=== PATIENT | male | born 1950 | race Caucasian/White ===

== ENCOUNTER 2016-04-20 16:32 | Emergency (ER) | payer MEDICARE, OTHER ==
[~2016-04-20] VITALS: Ht 182.9 cm; Wt 95.5 kg
[~2016-04-20 16:32] MED LIST: ALBUTEROL0.83 MG/ML IH; ANTI-GAS 8080 MG PO; ASPIRIN E.C. 8181 MG PO; ATROVENT I0.2 MG/1 M IH; AZULFIDINE ENT500 MG PO; AZULFIDINE500 MG PO; AZULFIDINE500 MG/TAB PO; BENADRYL25 M2 PO; BENADRYL50 MG PO; CALCITRIOL PO; CALCIUM 500 + D1 TA1 PO; CARAFATE 1GM1 G PO; CARVEDILOL25 MG PO; CEPACOL SORE TH1 LO8 MM; CEPHALEXIN500 M1 PO; CLEOCIN HC150 MG/CAP PO; CLEOCIN HCL300 MG PO; CLONAZEPAM1 MG PO; CLOPIDOGREL75 MG PO; COREG 25MG25 MG/TAB PO; CORTEF 10MG TAB10 MG PO; CYANOCOBAL1000 MCG/1; CYANOJECT1000 MCG/M IM; DILAUDID 4MG TAB4 MG PO; DILAUDID PAIN PUMP; DOCUSATE100 MG PO; EPOGEN 2,002 MU/VIA1; EPOGEN MU; EPOGEN4000 U/ML IJ; FOLIC ACID1 MG PO; FUROSEMIDE40 MG PO; HYDROCORTISONE10 MG PO; HYDROCORTISONE5 M1 PO; IMDUR 60MG60 MG/TAB PO; IMDUR30 MG PO; IPRATROPIUM BROM3 M1 IH; KEPPRA 500MG500 MG PO; KLONOPIN 1MG1 MG PO; LASIX 20MG TABL20 MG PO; LEVAQUIN 2250 MG/TAB PO; MAG-OX 400400 MG/TAB PO; MAGNESIUM OXID420 MG PO; METHOCARBAMOL500 MG PO; MIRALAX PA17 GM/Dose PO; NATURE'S BLEN5000 IU PO; NITROSTAT0.4 MG/TAB SL; OMEPRAZOLE20 MG PO; OXYCODONE5 M1 PO; PERCOCET 325 MG1 TA2 PO; PHOS LO PO; PHOSLO667 MG PO; PLAVIX 75MG TAB75 MG PO; PREDNISONE10 MG PO; PREDNISONE20 MG PO; PRINIVIL5 MG PO; REFRESH PLUS 00.4 M1 OP; RENVELA800 MG PO; RESTORIL30 MG PO; SEE INSTRUCTIONS IT; SIMVASTATIN40 MG PO; SULFASALAZINE500 M1 PO; TUMS500 MG PO; UNABLE; VIA; VITAMIN D1000 IU PO; ZANTAC 150MG T150 MG PO; ZOCOR 40MG40 MG PO; ZOFRAN ODT4 MG PO; ZYLOPRIM 100MG100 MG PO; ZYVOX 600MG600 MG PO
[2016-04-20 16:39] VITALS: BP 129/75; TEMP 98.2
[2016-04-20 20:09] VITALS: PULSE 90
== END 2016-04-20 20:09 | disposition home or self-care (01) ==
LOC: COL.ER 16:32
DX: T87.89 Other complications of amputation stump (principal); G89.29 Other chronic pain; M79.651 Pain in right thigh; Z89.611 Acquired absence of right leg above knee; E11.22 Type 2 diabetes mellitus with diabetic chronic kidney disease; I12.9 Hypertensive chronic kidney disease with stage 1 through stage 4 chronic kidney disease, or unspecified chronic kidney disease; N18.9 Chronic kidney disease, unspecified; G54.6 Phantom limb syndrome with pain

== ENCOUNTER 2016-04-26 15:19 | Inpatient (IN) | payer MEDICARE, OTHER ==
[2016-04-26] VITALS (330 sets, daily range): BP systolic 138–142; BP diastolic 78–93; PULSE 73–84; TEMP 97.1–97.4; O2SAT 65–100
[~2016-04-26] VITALS: Ht 182.9 cm; Wt 90.5 kg
[2016-04-26 16:10] LABS: BASO % 0.1 % (0.0-2.0); EOS # 0.1 (0.0-0.7); EOS % 0.7 % (0-4.0); GRAN # 4.9 (1.4-6.5); GRAN % 69.6 % (42.2-75.2); HEMOGLOBIN 10.8 g/dl (13.5-18.0); LYMPH # 1.3 (1.2-3.4); LYMPH % 18.5 % (20.0-51.0); MEAN CELL VOLUME 100 fl (80.0-100.0); MEAN CORPUSCULAR HEMOGLOBIN 32 pg (27.0-31.0); MEAN CORPUSCULAR HGB CONC 32 g/dl (33.0-37.0); MEAN PLATELET VOLUME 11.7 fl (7.4-10.4); MONO # 0.8 (0.1-0.6); PLATELET COUNT 109 K/mm3 (130-400); RED BLOOD COUNT 3.41 M/mm3 (4.20-5.60); REDCELL DISTRIBUTION WIDTH-CV 15.9 % (11.5-14.5)
[2016-04-26 16:14] LABS: INR 1.1 (0.8-3.0); PROTHROMBIN TIME 12.6 SECONDS (9.7-12.8)
[2016-04-26 16:17] LABS: ADJUSTED CALCIUM 8.3 mg/dL (8.4-10.2); ALBUMIN 4.4 gm/dL (3.5-5.0); BILIRUBIN,TOTAL 0.9 mg/dL (0.0-1.0); C-REACTIVE PROTEIN 1.2 mg/dL (0.0-0.9); CALCIUM 8.6 mg/dL (8.4-10.2); POTASSIUM 4.8 mmol/L (3.4-5.0); TOTAL PROTEIN 7.4 gm/dL (6.4-8.2)
[2016-04-26 16:22] LABS: CREATININE, serum 9.08 mg/dL (0.66-1.25)
[2016-04-26 16:25] LABS: TROPONIN-I 0.021 ng/mL (0.000-0.034)
[2016-04-26 16:34] LABS: MAGNESIUM 1.7 mg/dL (1.6-2.3); PHOSPHOROUS 8.7 mg/dL (2.5-4.5)
[2016-04-26 16:35] LABS: ARTERIAL BLD GAS O2 SATURATION 95.6 % (92-100); ARTERIAL BLD GAS TCO2 CT 16.2; ARTERIAL BLOOD GAS BASE EXCESS -13.8 (-2-2); ARTERIAL BLOOD GAS HCO3 14.8 meq/L (22-26); OXYHEMOGLOBIN 94.6 %
[2016-04-26 16:36] LABS: ALLEN TEST NO; ARTERIAL BLOOD GAS PHT 7.13 C (7.35-7.45); ARTERIAL BLOOD GAS pH 7.13 (7.35-7.45); ATS? YES; PARTIAL THROMBOPLASTIN TIME 28.2 SECONDS (26.0-37.0)
[2016-04-26 17:34] LABS: PH 5 (5-8); SQUAMOUS EPITHELIAL 0-2 /hpf; URINE APPEARANCE Hazy; URINE BACTERIA Rare /hpf; URINE BILIRUBIN Negative (NEGATIVE); URINE BLOOD 3+ (NEGATIVE); URINE COLOR Yellow; URINE GLUCOSE Negative (NEGATIVE); URINE KETONE Negative (NEGATIVE); URINE UROBILINOGEN Negative (NEGATIVE)
[2016-04-27] VITALS (672 sets, daily range): BP systolic 130–143; BP diastolic 64–86; PULSE 76–88; TEMP 97.1–98.7; O2SAT 41–100
[2016-04-27 05:50] LABS: ALBUMIN 3.9 gm/dL (3.5-5.0); CALCIUM 7.8 mg/dL (8.4-10.2); PHOSPHOROUS 6.8 mg/dL (2.5-4.5); POTASSIUM 3.7 mmol/L (3.4-5.0)
[2016-04-27 05:55] LABS: CREATININE, serum 7.77 mg/dL (0.66-1.25)
[2016-04-27 14:10] LABS: MAGNESIUM 1.5 mg/dL (1.6-2.3); POTASSIUM 3.5 mmol/L (3.4-5.0)
[2016-04-27 14:23] LABS: TROPONIN-I 0.03 ng/mL (0.000-0.034)
[2016-04-28 00:13] VITALS: BP 127/59; PULSE 79; TEMP 98.2
[2016-04-28 04:04] VITALS: BP 131/63; PULSE 71; TEMP 97.6
[2016-04-28 07:17] LABS: CALCIUM 7.9 mg/dL (8.4-10.2); PHOSPHOROUS 6.4 mg/dL (2.5-4.5); POTASSIUM 3.6 mmol/L (3.4-5.0)
[2016-04-28 07:37] LABS: CREATININE, serum 7.08 mg/dL (0.66-1.25)
[2016-04-28 08:32] VITALS: BP 147/70; PULSE 77; TEMP 97.8
[2016-04-28 12:30] VITALS: BP 126/59; PULSE 76; TEMP 98.4
[2016-04-28 16:10] VITALS: BP 147/73; PULSE 72; TEMP 97.6
[2016-04-28 20:31] VITALS: BP 147/71; PULSE 80; TEMP 98.7
[2016-04-29] VITALS (7 sets, daily range): BP systolic 121–159; BP diastolic 64–82; PULSE 75–86; TEMP 96.6–98.9
[2016-04-29 07:46] LABS: ALBUMIN 4.1 gm/dL (3.5-5.0); CALCIUM 8.8 mg/dL (8.4-10.2); PHOSPHOROUS 6.1 mg/dL (2.5-4.5); POTASSIUM 3.7 mmol/L (3.4-5.0)
[2016-04-29 08:02] LABS: CREATININE, serum 6.54 mg/dL (0.66-1.25)
[2016-04-29] MEDS ORDERED: XALATAN EYE DROPS OU (13:57)
[2016-04-30 00:50] VITALS: BP 157/72; PULSE 64; TEMP 97.3
[2016-04-30 05:10] VITALS: BP 139/66; PULSE 70; TEMP 97.4
[2016-04-30 09:14] VITALS: BP 135/67; PULSE 71; TEMP 97.4
[2016-04-30 11:26] LABS: BASO % 0.2 % (0.0-2.0); EOS # 0.2 (0.0-0.7); EOS % 2.7 % (0-4.0); GRAN # 4.4 (1.4-6.5); GRAN % 69.4 % (42.2-75.2); LYMPH # 1.1 (1.2-3.4); MEAN CELL VOLUME 103 fl (80.0-100.0); MEAN CORPUSCULAR HGB CONC 31 g/dl (33.0-37.0); MONO # 0.7 (0.1-0.6); MONO % 10.2 % (1.7-9.3); PLATELET COUNT 134 K/mm3 (130-400); RED BLOOD COUNT 3.06 M/mm3 (4.20-5.60); REDCELL DISTRIBUTION WIDTH-CV 16.1 % (11.5-14.5); WHITE BLOOD COUNT 6.4 K/mm3 (4.8-10.8)
[2016-04-30 11:31] LABS: HEMATOCRIT 31.4 % (42.0-52.0); HEMOGLOBIN 9.6 g/dl (13.5-18.0); MEAN CORPUSCULAR HEMOGLOBIN 31 pg (27.0-31.0)
[2016-04-30 12:26] LABS: POTASSIUM 4.1 mmol/L (3.4-5.0)
[2016-04-30 12:34] LABS: CREATININE, serum 6.52 mg/dL (0.66-1.25)
[2016-04-30 13:10] VITALS: BP 139/70; PULSE 79; TEMP 97.4
[2016-04-30 15:28] VITALS: BP 131/64; PULSE 86; TEMP 98
== END 2016-04-30 15:55 | disposition short-term general hospital (02) | DRG 683 ==
LOC: COL.ER 15:19 → ICU 17:34 → MEDICAL 17:34
PROVIDERS: Family Medicine; Internal Medicine; Internal Medicine Nephrology
DX: N17.9 Acute kidney failure, unspecified (principal); K50.90 Crohn's disease, unspecified, without complications; I12.0 Hypertensive chronic kidney disease with stage 5 chronic kidney disease or end stage renal disease; E87.2 Acidosis; N18.6 End stage renal disease; E83.51 Hypocalcemia; M45.9 Ankylosing spondylitis of unspecified sites in spine; Z89.511 Acquired absence of right leg below knee; J44.9 Chronic obstructive pulmonary disease, unspecified; E83.39 Other disorders of phosphorus metabolism; G89.29 Other chronic pain; Z86.711 Personal history of pulmonary embolism
CPT/HCPCS: J1644; J1650; J2405; J7030

== ENCOUNTER → 2016-05-27 | Outpatient (REF) ==
[~2016-05-27] MED LIST changes: +XALATAN EYE DROPS OU
[2016-05-27 10:42] LABS: BASO # 0.1 (0.0-0.2); BASO % 0.6 % (0.0-2.0); EOS # 0.2 (0.0-0.7); EOS % 1.7 % (0-4.0); GRAN # 8.3 (1.4-6.5); GRAN % 79.1 % (42.2-75.2); LYMPH # 1.1 (1.2-3.4); LYMPH % 10.4 % (20.0-51.0); MEAN CELL VOLUME 103 fl (80.0-100.0); MEAN CORPUSCULAR HGB CONC 31 g/dl (33.0-37.0); MONO # 0.8 (0.1-0.6); MONO % 7.4 % (1.7-9.3); PLATELET COUNT 152 K/mm3 (130-400); RED BLOOD COUNT 3.06 M/mm3 (4.20-5.60); REDCELL DISTRIBUTION WIDTH-CV 16.1 % (11.5-14.5); WHITE BLOOD COUNT 10.5 K/mm3 (4.8-10.8)
[2016-05-27 11:00] LABS: HEMATOCRIT 31.5 % (42.0-52.0); HEMOGLOBIN 9.7 g/dl (13.5-18.0); MEAN CORPUSCULAR HEMOGLOBIN 32 pg (27.0-31.0)
== END ==
LOC: ZCOL.LAB 10:31
PROVIDERS: Internal Medicine
DX: N18.6 End stage renal disease (principal); D63.1 Anemia in chronic kidney disease; A08.8 Other specified intestinal infections

== ENCOUNTER 2016-10-20 07:48 | Emergency (ER) | payer MEDICARE, OTHER ==
[~2016-10-20] VITALS: Ht 182.9 cm; Wt 90.9 kg
[2016-10-20 07:51] VITALS: TEMP 97.7
[2016-10-20 09:12] VITALS: BP 100/65; PULSE 89
== END 2016-10-20 09:45 | disposition home or self-care (01) ==
LOC: COL.ER 07:48
DX: T87.89 Other complications of amputation stump (principal); I12.0 Hypertensive chronic kidney disease with stage 5 chronic kidney disease or end stage renal disease; N18.6 End stage renal disease; E78.5 Hyperlipidemia, unspecified; G89.29 Other chronic pain; I82.409 Acute embolism and thrombosis of unspecified deep veins of unspecified lower extremity; Z99.2 Dependence on renal dialysis; Z89.611 Acquired absence of right leg above knee
CPT/HCPCS: J1100

== ENCOUNTER → 2016-10-27 | Outpatient (CLI) | payer MEDICARE, OTHER | LOC: COL.RAD 09:52 | DX: Z11.1 Encounter for screening for respiratory tuberculosis (principal) ==

== ENCOUNTER 2016-12-22 07:37 | Emergency (ER) | payer MEDICARE, OTHER ==
[~2016-12-22] VITALS: Ht 182.9 cm; Wt 85.9 kg
[2016-12-22 07:40] VITALS: TEMP 97.6
[2016-12-22 09:39] VITALS: BP 104/59; PULSE 74
== END 2016-12-22 09:35 | disposition home or self-care (01) ==
LOC: COL.ER 07:37
DX: G62.9 Polyneuropathy, unspecified (principal); M79.604 Pain in right leg; I10 Essential (primary) hypertension; N19 Unspecified kidney failure; Z99.2 Dependence on renal dialysis; Z79.82 Long term (current) use of aspirin; Z79.02 Long term (current) use of antithrombotics/antiplatelets; Z89.611 Acquired absence of right leg above knee; Z98.890 Other specified postprocedural states
CPT/HCPCS: J1100

== ENCOUNTER 2017-03-26 10:25 | Day surgery (SDC) | payer MEDICARE, OTHER ==
[~2017-03-26] VITALS: Ht 182.9 cm; Wt 89.1 kg
[2017-03-26 11:34] VITALS: BP 94/73; PULSE 95; TEMP 97.2
[2017-03-26] MEDS ORDERED: CYANOCOBAL1000 MCG/M IM (11:56)
[2017-03-26] MEDS ORDERED: FERROUS SU325 MG/TAB PO (11:57)
[2017-03-26] MEDS ORDERED: VITAMIN D31000 I1 PO (11:58)
[2017-03-26] MEDS ORDERED: ELOCON0.1% TP (11:59)
[2017-03-26] MEDS ORDERED: [UNRECOGNIZED DRUG - OTHER] PO (12:06)
[2017-03-26 14:22] VITALS: BP 90/50; PULSE 73; TEMP 97.3
[2017-03-26 14:32] VITALS: BP 79/37; PULSE 72
[2017-03-26 14:45] VITALS: BP 82/50; PULSE 66
[2017-03-26] MEDS ORDERED: PERCOCET 325 MG1 TA2 PO (15:03)
[2017-03-26] MEDS ORDERED: COLACE 100100 MG/CAP PO (15:04)
[2017-03-26 15:07] VITALS: BP 93/58; PULSE 68
[2017-03-26 15:42] VITALS: BP 95/67; PULSE 66
== END 2017-03-26 16:10 | disposition home or self-care (01) ==
LOC: SDCO 10:25
DX: K64.5 Perianal venous thrombosis (principal); G47.33 Obstructive sleep apnea (adult) (pediatric); E24.9 Cushing's syndrome, unspecified; E78.5 Hyperlipidemia, unspecified; I13.2 Hypertensive heart and chronic kidney disease with heart failure and with stage 5 chronic kidney disease, or end stage renal disease; N18.5 Chronic kidney disease, stage 5; I50.9 Heart failure, unspecified; I25.119 Atherosclerotic heart disease of native coronary artery with unspecified angina pectoris; I42.9 Cardiomyopathy, unspecified; I25.2 Old myocardial infarction; D64.9 Anemia, unspecified; D69.6 Thrombocytopenia, unspecified; M45.9 Ankylosing spondylitis of unspecified sites in spine; K50.90 Crohn's disease, unspecified, without complications; K92.1 Melena; K21.9 Gastro-esophageal reflux disease without esophagitis; F32.9 Major depressive disorder, single episode, unspecified; Z95.5 Presence of coronary angioplasty implant and graft; Z86.73 Personal history of transient ischemic attack (TIA), and cerebral infarction without residual deficits; Z86.718 Personal history of other venous thrombosis and embolism; Z82.49 Family history of ischemic heart disease and other diseases of the circulatory system; Z82.3 Family history of stroke
CPT/HCPCS: J2250; J2704; J3010; J7030

== ENCOUNTER 2017-04-07 09:45 | Emergency (ER) | payer MEDICARE, OTHER ==
[~2017-04-07] VITALS: Ht 182.9 cm; Wt 88.6 kg
[~2017-04-07 09:45] MED LIST changes: +COLACE 100100 MG/CAP PO; +CYANOCOBAL1000 MCG/M IM; +ELOCON0.1% TP; +FERROUS SU325 MG/TAB PO; +VITAMIN D31000 I1 PO; +[UNRECOGNIZED DRUG - OTHER] PO
[2017-04-07 09:50] VITALS: TEMP 98.1
[2017-04-07 11:23] LABS: BASO % 0.4 % (0.0-2.0); EOS # 0.1 (0.0-0.7); EOS % 1.4 % (0-4.0); GRAN # 5.2 (1.4-6.5); LYMPH # 1.2 (1.2-3.4); LYMPH % 16.6 % (20.0-51.0); MEAN CELL VOLUME 110 fl (80.0-100.0); MEAN CORPUSCULAR HGB CONC 32 g/dl (33.0-37.0); MEAN PLATELET VOLUME 11.4 fl (7.4-10.4); MONO # 0.5 (0.1-0.6); MONO % 7.2 % (1.7-9.3); PLATELET COUNT 127 K/mm3 (130-400)
[2017-04-07 11:26] LABS: HEMOGLOBIN 10.3 g/dl (13.5-18.0); MEAN CORPUSCULAR HEMOGLOBIN 36 pg (27.0-31.0)
[2017-04-07 11:33] LABS: ADJUSTED CALCIUM 9.1 mg/dL (8.4-10.2); BILIRUBIN,TOTAL 0.6 mg/dL (0.0-1.0); CALCIUM 9.1 mg/dL (8.4-10.2); POTASSIUM 3.3 mmol/L (3.4-5.0); TOTAL PROTEIN 6.9 gm/dL (6.4-8.2)
[2017-04-07 11:35] LABS: CREATININE, serum 5.9 mg/dL (0.66-1.25)
[2017-04-07 11:45] LABS: TROPONIN-I 0.024 ng/mL (0.000-0.034)
[2017-04-07 15:37] LABS: INR 1.2 (0.8-3.0); PROTHROMBIN TIME 13.7 SECONDS (9.7-12.8)
[2017-04-07 15:40] LABS: PARTIAL THROMBOPLASTIN TIME 32.7 SECONDS (26.0-37.0)
[2017-04-07 16:13] VITALS: BP 92/66; PULSE 83
== END 2017-04-07 16:13 | disposition home or self-care (01) ==
LOC: COL.ER 09:45
PROVIDERS: Emergency Medicine; Nurse Practitioner Primary Care
DX: G89.29 Other chronic pain (principal); M54.5 Low back pain; I12.0 Hypertensive chronic kidney disease with stage 5 chronic kidney disease or end stage renal disease; N18.5 Chronic kidney disease, stage 5; I25.2 Old myocardial infarction; E78.5 Hyperlipidemia, unspecified; G40.909 Epilepsy, unspecified, not intractable, without status epilepticus; J44.9 Chronic obstructive pulmonary disease, unspecified; K21.9 Gastro-esophageal reflux disease without esophagitis; K50.90 Crohn's disease, unspecified, without complications; Z86.69 Personal history of other diseases of the nervous system and sense organs; Z86.711 Personal history of pulmonary embolism; Z86.72 Personal history of thrombophlebitis; Z87.39 Personal history of other diseases of the musculoskeletal system and connective tissue; Z87.442 Personal history of urinary calculi; Z79.82 Long term (current) use of aspirin; Z89.611 Acquired absence of right leg above knee; Z90.2 Acquired absence of lung [part of]; Z98.890 Other specified postprocedural states
CPT/HCPCS: J7030

== ENCOUNTER → 2017-04-08 | Outpatient (CLI) | payer MEDICARE, OTHER ==
[~2017-04-08] MED LIST changes: +DILAUDID 2MG TAB2 MG PO
== END ==
LOC: COL.RAD 08:21
DX: R06.02 Shortness of breath (principal); R07.9 Chest pain, unspecified; Z90.2 Acquired absence of lung [part of]
CPT/HCPCS: A9539; A9540

== ENCOUNTER 2017-04-10 09:58 | Emergency (ER) | payer MEDICARE, OTHER ==
[~2017-04-10] VITALS: Ht 182.9 cm; Wt 88.6 kg
[~2017-04-10 09:58] MED LIST changes: -DILAUDID 2MG TAB2 MG PO
[2017-04-10 10:01] VITALS: PULSE 82; TEMP 97.7
[2017-04-10 10:53] LABS: BASO % 0.5 % (0.0-2.0); EOS # 0.2 (0.0-0.7); GRAN # 3.8 (1.4-6.5); GRAN % 62.1 % (42.2-75.2); LYMPH # 1.5 (1.2-3.4); LYMPH % 24.2 % (20.0-51.0); MEAN CELL VOLUME 110 fl (80.0-100.0); MEAN CORPUSCULAR HGB CONC 32 g/dl (33.0-37.0); MEAN PLATELET VOLUME 11.3 fl (7.4-10.4); MONO # 0.6 (0.1-0.6); MONO % 9.9 % (1.7-9.3); PLATELET COUNT 124 K/mm3 (130-400); RED BLOOD COUNT 3.11 M/mm3 (4.20-5.60); WHITE BLOOD COUNT 6.1 K/mm3 (4.8-10.8)
[2017-04-10 10:55] LABS: HEMATOCRIT 34.1 % (42.0-52.0); MEAN CORPUSCULAR HEMOGLOBIN 35 pg (27.0-31.0)
[2017-04-10 11:21] LABS: ADJUSTED CALCIUM 8.7 mg/dL (8.4-10.2); ALBUMIN 4.4 gm/dL (3.5-5.0); BILIRUBIN,TOTAL 0.7 mg/dL (0.0-1.0); C-REACTIVE PROTEIN 5.1 mg/dL (0.0-0.9); POTASSIUM 3.6 mmol/L (3.4-5.0); TOTAL PROTEIN 7.4 gm/dL (6.4-8.2)
[2017-04-10 11:22] LABS: CREATININE, serum 5.99 mg/dL (0.66-1.25)
[2017-04-10 11:30] LABS: TROPONIN-I 0.031 ng/mL (0.000-0.034)
[2017-04-10] MEDS ORDERED: DILAUDID 2MG TAB2 MG PO (12:12)
[2017-04-10 12:35] VITALS: BP 94/54
== END 2017-04-10 12:37 | disposition home or self-care (01) ==
LOC: COL.ER 09:58
PROVIDERS: Emergency Medicine
DX: N18.6 End stage renal disease (principal); M54.5 Low back pain; G89.29 Other chronic pain; R06.02 Shortness of breath; Z99.2 Dependence on renal dialysis; Z79.82 Long term (current) use of aspirin; Z89.611 Acquired absence of right leg above knee
CPT/HCPCS: J1170; J2405

== ENCOUNTER → 2017-05-10 | Emergency (ER) | payer MEDICARE, OTHER ==
[~2017-05-10] VITALS: Wt 86.8 kg
[~2017-05-10] MED LIST changes: +ASPIRIN 81M81 MG/TA2 PO; +CYANOCOBAL1000 MCG/1 IJ; +DILAUDID 2MG TAB2 MG PO; +ISOSORBIDE MON120 MG PO; +SEVELAMER CARBONATE PO; +VALU-DRYL ALLER25 MG PO; +VITAMIN D 1001000 IU PO; +ZANTAC 150150 MG PO; +ZOCOR 20MG20 MG PO
[2017-05-10 09:55] VITALS: TEMP 97.9
[2017-05-10 12:37] VITALS: BP 108/78; PULSE 82
== END ==
LOC: COL.ER 09:42
DX: M79.2 Neuralgia and neuritis, unspecified (principal); I12.0 Hypertensive chronic kidney disease with stage 5 chronic kidney disease or end stage renal disease; N18.6 End stage renal disease; E78.5 Hyperlipidemia, unspecified; K21.9 Gastro-esophageal reflux disease without esophagitis; J44.9 Chronic obstructive pulmonary disease, unspecified; G47.33 Obstructive sleep apnea (adult) (pediatric); K50.90 Crohn's disease, unspecified, without complications; Z86.711 Personal history of pulmonary embolism; Z99.2 Dependence on renal dialysis; Z89.611 Acquired absence of right leg above knee; Z79.82 Long term (current) use of aspirin
CPT/HCPCS: J3301

== ENCOUNTER → 2017-07-27 | Outpatient (CLI) | payer MEDICARE, OTHER | LOC: COL.RAD 15:58 | DX: M54.2 Cervicalgia (principal); W05.0XXA Fall from non-moving wheelchair, initial encounter ==

== ENCOUNTER → 2017-07-29 | Outpatient (CLI) | payer MEDICARE, OTHER | LOC: COL.RAD 12:11 | DX: M54.2 Cervicalgia (principal); M43.6 Torticollis; W05.0XXA Fall from non-moving wheelchair, initial encounter; Z89.9 Acquired absence of limb, unspecified ==

== ENCOUNTER 2017-08-17 10:26 | Emergency (ER) | payer MEDICARE, OTHER ==
[~2017-08-17] VITALS: Ht 182.9 cm; Wt 87.7 kg
[2017-08-17 12:46] VITALS: BP 110/69; PULSE 80; TEMP 97
== END 2017-08-17 12:47 | disposition home or self-care (01) ==
LOC: COL.ER 10:26
DX: R51 Headache (principal); I25.10 Atherosclerotic heart disease of native coronary artery without angina pectoris; I42.9 Cardiomyopathy, unspecified; Z86.711 Personal history of pulmonary embolism; Z86.718 Personal history of other venous thrombosis and embolism; Z99.2 Dependence on renal dialysis; Z89.511 Acquired absence of right leg below knee; Z95.5 Presence of coronary angioplasty implant and graft

== ENCOUNTER 2018-01-09 07:54 | Emergency (ER) | payer MEDICARE, OTHER ==
[~2018-01-09] VITALS: Ht 182.9 cm; Wt 85.0 kg
[2018-01-09 07:58] VITALS: TEMP 98.7
[2018-01-09 08:41] VITALS: BP 94/57; PULSE 97
== END 2018-01-09 09:08 | disposition home or self-care (01) ==
LOC: COL.ER 07:54
DX: T87.89 Other complications of amputation stump (principal); G54.6 Phantom limb syndrome with pain; Z89.611 Acquired absence of right leg above knee; Z79.82 Long term (current) use of aspirin
CPT/HCPCS: J3301

== ENCOUNTER 2018-02-11 14:02 | Emergency (ER) | payer MEDICARE, OTHER ==
[~2018-02-11] VITALS: Ht 182.9 cm; Wt 85.5 kg
[2018-02-11 14:10] VITALS: TEMP 97.8
[2018-02-11 15:37] VITALS: BP 108/79; PULSE 97
== END 2018-02-11 15:40 | disposition home or self-care (01) ==
LOC: COL.ER 14:02
DX: T87.89 Other complications of amputation stump (principal); E11.9 Type 2 diabetes mellitus without complications; I10 Essential (primary) hypertension; Z79.82 Long term (current) use of aspirin

== ENCOUNTER → 2018-02-18 | Outpatient (CLI) | payer MEDICARE, OTHER | LOC: COL.RAD 13:21 | DX: I82.221 Chronic embolism and thrombosis of inferior vena cava (principal); N26.1 Atrophy of kidney (terminal); N20.0 Calculus of kidney; M62.50 Muscle wasting and atrophy, not elsewhere classified, unspecified site; Z99.2 Dependence on renal dialysis | CPT/HCPCS: Q9967 ==

== ENCOUNTER 2018-10-05 20:52 | Emergency (ER) | payer MEDICARE, OTHER ==
[~2018-10-05] VITALS: Ht 182.9 cm; Wt 85.5 kg
[2018-10-05 21:00] VITALS: BP 90/52; TEMP 97.4
[2018-10-05 22:43] VITALS: PULSE 93
== END 2018-10-05 22:43 | disposition home or self-care (01) ==
LOC: COL.ER 20:52
DX: S81.812A Laceration without foreign body, left lower leg, initial encounter (principal); N18.6 End stage renal disease; I25.10 Atherosclerotic heart disease of native coronary artery without angina pectoris; Z79.82 Long term (current) use of aspirin; W05.0XXA Fall from non-moving wheelchair, initial encounter; Y92.009 Unspecified place in unspecified non-institutional (private) residence as the place of occurrence of the external cause

== ENCOUNTER 2019-02-11 13:59 | Emergency (ER) | payer MEDICARE, OTHER ==
[~2019-02-11] VITALS: Ht 182.9 cm; Wt 85.0 kg
[~2019-02-11 13:59] MED LIST changes: +ARANESP0.15 MG/0. SQ; +CORDARONE200 MG/TAB PO; +LASIX 80MG TABL80 MG PO; +NATURAL IRON65 MG PO; +NEURONTIN100 MG/CAP PO
[2019-02-11 14:49] LABS: BASO % 0.2 % (0.0-2.0); EOS % 0.2 % (0-4.0); GRAN # 7.5 (1.4-6.5); GRAN % 80.7 % (42.2-75.2); LYMPH # 1.1 (1.2-3.4); LYMPH % 11.4 % (20.0-51.0); MEAN CELL VOLUME 112 fl (80.0-100.0); MEAN CORPUSCULAR HGB CONC 32 g/dl (33.0-37.0); MEAN PLATELET VOLUME 11.1 fl (7.4-10.4); MONO # 0.6 (0.1-0.6); MONO % 6.7 % (1.7-9.3); PLATELET COUNT 132 K/mm3 (130-400); RED BLOOD COUNT 2.58 M/mm3 (4.20-5.60); REDCELL DISTRIBUTION WIDTH-CV 15.7 % (11.5-14.5)
[2019-02-11 14:52] LABS: HEMATOCRIT 28.8 % (42.0-52.0); HEMOGLOBIN 9.1 g/dl (13.5-18.0); MEAN CORPUSCULAR HEMOGLOBIN 35 pg (27.0-31.0)
[2019-02-11 15:02] LABS: ALBUMIN 3.8 gm/dL (3.5-5.0); BILIRUBIN,TOTAL 0.3 mg/dL (0.0-1.0); CALCIUM 8.8 mg/dL (8.4-10.2); CREATININE, serum 2.62 (0.66-1.25); POTASSIUM 3.5 mmol/L (3.4-5.0); TOTAL PROTEIN 6.6 gm/dL (6.4-8.2)
[2019-02-11 15:11] LABS: PARTIAL THROMBOPLASTIN TIME 33.3 SECONDS (26.0-37.0)
[2019-02-11 15:13] LABS: TROPONIN-I 0.027 ng/mL (0.000-0.035)
[2019-02-11 16:35] VITALS: BP 107/66; PULSE 86; TEMP 98.8
== END 2019-02-11 16:40 | disposition home or self-care (01) ==
LOC: COL.ER 13:59
PROVIDERS: Family Medicine
DX: I12.0 Hypertensive chronic kidney disease with stage 5 chronic kidney disease or end stage renal disease (principal); E11.22 Type 2 diabetes mellitus with diabetic chronic kidney disease; N18.6 End stage renal disease; R07.89 Other chest pain; J44.1 Chronic obstructive pulmonary disease with (acute) exacerbation; G40.909 Epilepsy, unspecified, not intractable, without status epilepticus; Z99.2 Dependence on renal dialysis; Z79.82 Long term (current) use of aspirin; Z79.02 Long term (current) use of antithrombotics/antiplatelets
CPT/HCPCS: J2405; J3010

== ENCOUNTER 2019-02-15 18:57 | Inpatient (IN) | payer MEDICARE, OTHER ==
[~2019-02-15] VITALS: Ht 182.9 cm; Wt 83.4 kg
[2019-02-15 20:09] LABS: BASO % 0.3 % (0.0-2.0); EOS # 0.2 (0.0-0.7); EOS % 1.8 % (0-4.0); GRAN # 7.1 (1.4-6.5); MEAN CELL VOLUME 117 fl (80.0-100.0); MEAN CORPUSCULAR HGB CONC 31 g/dl (33.0-37.0); MEAN PLATELET VOLUME 11.3 fl (7.4-10.4); MONO # 1.1 (0.1-0.6); MONO % 11.2 % (1.7-9.3); PLATELET COUNT 158 K/mm3 (130-400); RED BLOOD COUNT 2.59 M/mm3 (4.20-5.60); REDCELL DISTRIBUTION WIDTH-CV 16.1 % (11.5-14.5)
[2019-02-15 20:15] LABS: HEMATOCRIT 30.2 % (42.0-52.0); HEMOGLOBIN 9.2 g/dl (13.5-18.0); MEAN CORPUSCULAR HEMOGLOBIN 36 pg (27.0-31.0)
[2019-02-15 20:20] LABS: ALBUMIN 3.7 gm/dL (3.5-5.0); BILIRUBIN,TOTAL 0.4 mg/dL (0.0-1.0); CALCIUM 8.7 mg/dL (8.4-10.2); MAGNESIUM 2.3 mg/dL (1.6-2.3); POTASSIUM 3.8 mmol/L (3.4-5.0); TOTAL PROTEIN 6.5 gm/dL (6.4-8.2)
[2019-02-15 20:21] LABS: CREATININE, serum 5.95 (0.66-1.25)
[2019-02-15 20:31] LABS: TROPONIN-I 0.03 ng/mL (0.000-0.035)
[2019-02-15] MEDS ORDERED: ARANESP0.06 MG/0. SQ (20:54)
[2019-02-15] MEDS ORDERED: CALPHRON667 MG PO (20:56)
[2019-02-15] MEDS ORDERED: PLAVIX 75MG TAB75 MG PO (20:57)
[2019-02-15] MEDS ORDERED: B-121000 MCG PO (20:58)
[2019-02-15] MEDS ORDERED: BENADRYL50 MG PO (20:59)
[2019-02-15] MEDS ORDERED: FERRO-TIME325 MG PO (21:00)
[2019-02-15] MEDS ORDERED: NEURONTIN100 MG/CAP PO (21:01)
[2019-02-15] MEDS ORDERED: LASIX 40MG TABL40 MG PO (21:01)
[2019-02-15] MEDS ORDERED: CORTEF 10MG TAB10 MG PO (21:02)
[2019-02-15] MEDS ORDERED: KEPPRA 500MG500 MG PO (21:04)
[2019-02-15] MEDS ORDERED: RENAGEL800 MG PO (21:05)
[2019-02-15] MEDS ORDERED: RESTORIL30 MG (21:06)
[2019-02-15] MEDS ORDERED: PERCOCET 325 MG1 TA2 PO (21:07)
[2019-02-15] MEDS ORDERED: DILAUDID 4MG TAB4 MG PO (21:08)
[2019-02-16] VITALS (10 sets, daily range): BP systolic 65–98; BP diastolic 23–53; PULSE 67–85; TEMP 97.3–98.5
--- NOTE | 2019-02-16 00:32 | NUR ---
Pt brought to Rm 315 per cart from ER. Alert. 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 Dozes off to sleep frequently while talking with pt. Accompanied with spouse and daughter. Assessment complete. VS monitored. C-pap set up for pt by RT. O2 on per NC at 3L. Med list gone over with spouse. INT intact in upper left arm. Has fistula in R lower arm that in non-working. Has hepatic port in R side for dialysis. Wound to L outer ankle redressed with Aquacel foam. Call light within reach. Bed alarm activated.
--- NOTE | 2019-02-16 01:34 | NUR ---
Notified Dr Guerrier of pt admission to 315. Instructed to hold meds till morning. Pt asleep at this time with c-pap on.
--- NOTE | 2019-02-16 14:00 | NUR ---
PATIENT GOING DOWN VIA BED TO CT PER . SEE ORDER FOR FLUID BOLUS FOR DIALYSIS. PATIENT TO GO TO DIALYSIS POST CT SCAN.
--- NOTE | 2019-02-16 16:10 | NUR ---
GINNA contacted the patient's , Ness (ph#[phone]), to discuss discharge plan. The patient was in dialysis. The patient lives in [place] with his . Ness reports that the patient needs assistance with ADLs and uses a wheelchair. She states that the patient has been weaker lately and needing more help with using the restroom. She states that he does not have any home health. The patient's PCP is Dr. Paul Hines and he also receives primary care from Dr. Ovalles at the [facility] in [place]. He receives his medications through the [facility] or [facility]. Ness reports no difficulties obtaining his meds. The patient does not have advanced directives in EMR, but his states that he does have them completed. She states that she is his DPOA-HC. She states that Dr. Hines's office should have a copy. GINNA attempted to contact Dr. Hines's office. GINNA left a voicemail. At this time, the patient's reports that she is unsure of discharge plan. GINNA to continue to follow to ensure a safe discharge.
--- NOTE | 2019-02-16 16:30 | NUR ---
PATIENT BACK IN ROOM FROM DIALYSIS. PATIENT RECEIVED TWO FLUID BOLUSES AND NO EXTRA FLUID WAS TAKEN DURING DIALYSIS DUE TO B/P IN THE 70'S SYST[place]. DIALYSIS NURSE REPORTS CURRENTLY B/P IN THE 80'S [place] WHICH IS TYPICAL FOR HIM WITH DIALYSIS. APPROVED TRANSFER TO FLOOR. PATIENT IS PALE, DROWSY BUT DOES AROUSE WITH VERBAL STIMULI. WILL MONITOR.
[2019-02-17] VITALS (13 sets, daily range): BP systolic 68–109; BP diastolic 33–56; PULSE 61–92; TEMP 97.2–98.1
--- NOTE | 2019-02-17 03:57 | NUR ---
Patient's cognitive state better tonight. Appears more tired. A&O x4. 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 Dr Guerrier called in to see how pt was doing. Update given. Orders received. VS will be monitored every 2 hours. Pt's BP has pretty much on the low side with pt being asymptomatic. C-Pap put on at HS per RT. Left uppper arm remains edematous. Call light within reach. Bed a;ar,
[2019-02-17 07:54] LABS: EOS % 0.2 % (0-4.0); GRAN # 4.5 (1.4-6.5); GRAN % 87.4 % (42.2-75.2); LYMPH # 0.4 (1.2-3.4); LYMPH % 7.9 % (20.0-51.0); MEAN CELL VOLUME 115 fl (80.0-100.0); MEAN CORPUSCULAR HGB CONC 31 g/dl (33.0-37.0); MEAN PLATELET VOLUME 11.5 fl (7.4-10.4); MONO # 0.2 (0.1-0.6); MONO % 3.5 % (1.7-9.3); PLATELET COUNT 125 K/mm3 (130-400); RED BLOOD COUNT 2.14 M/mm3 (4.20-5.60); REDCELL DISTRIBUTION WIDTH-CV 15.9 % (11.5-14.5)
[2019-02-17 08:00] LABS: HEMATOCRIT 24.5 % (42.0-52.0); HEMOGLOBIN 7.6 g/dl (13.5-18.0); MEAN CORPUSCULAR HEMOGLOBIN 36 pg (27.0-31.0)
[2019-02-17 08:04] LABS: CALCIUM 8.1 mg/dL (8.4-10.2); PHOSPHOROUS 3.1 mg/dL (2.5-4.5); POTASSIUM 4.4 mmol/L (3.4-5.0)
[2019-02-17 08:08] LABS: CREATININE, serum 5.4 (0.66-1.25)
--- NOTE | 2019-02-17 08:15 | NUR ---
Pt assessment complete. Alert and oriented x4. Pt laying comfortably in bed. Denies SOB, headache, dizziness, nausea. C/O of "phantom pain to right foot", rate 5/10. On 5L O2 via NC, SpO2 93%. Heel protector placed to left foot. Dressing to left lateral ankle and left lateral lower leg clean, dry, and intact. Repositioned pt up in bed with assistance of another RN. Pt able to verbalized needs.
--- NOTE | 2019-02-17 15:57 | NUR ---
GINNA met with the patient and the patient's to review discharge plan. The patient and his report that it is too soon to make a decision on discharge plan and would like to see how he does these next couple of days. The patient's reports that he is losing blood and they are unsure of where the bleed is coming from. PT/OT have been ordered. SW to continue to follow.
--- NOTE | 2019-02-17 19:13 | NUR ---
Pt laying comfortable in bed with dinner tray. at bedside. Denies pain or discomfort or SOB. Tolerated blood administration well, without symptoms or adverse reactions. Able to make needs known.
--- NOTE | 2019-02-17 21:15 | NUR ---
Resting in bed. Assessment complete. Lungs clear. Heart sounds normal. Bowels active x4. Pulses present. Left lower leg edema +3. Left arm edema +3. Right arm edema +2. Left foot boot on. Left perez abrasion present. Covered with dressing, CDI. Left lateral ankle wound covered with mepilex, CDI at this time. Patient has right ABD dialysis cath present. Dressing in place. Reports increased pain 5/10 and lightheadedness. Blood pressure 109/44. Offered pain medication. Refused at this time. Refused repositioning. Patient would like to see if lightheadedness eases with rest. Will monitor. Call light in reach.
[2019-02-18] VITALS (12 sets, daily range): BP systolic 94–125; BP diastolic 43–102; PULSE 57–91; TEMP 97.5–98.5
--- NOTE | 2019-02-18 01:59 | NUR ---
Lightheadedness resolved at this time. Pain decreased. Patient repositioned. Call light in reach.
--- NOTE | 2019-02-18 02:51 | NUR ---
Reports anxiety and requesting PRN klonopin. Blood pressure stable at 97/55 at this time. Provided to patient. Will closely monitor.
[2019-02-18 03:07] LABS: KAPPA FREE LIGHT CHAIN-SERUM 93.98 mg/L (()); KAPPA LAMBDA RATIO 1.08 ratio (()); LAMDA FREE LIGHT CHAIN SERUM 86.78 mg/L (())
--- NOTE | 2019-02-18 04:07 | NUR ---
Up to bedside commode at this time.
--- NOTE | 2019-02-18 06:02 | NUR ---
Patient received one dose of klonopin and oxycodone for anxiety and pain. x2 assist to bedside commode. Blood pressures remained low but stable. Asymptomatic. Denies needs this AM
--- NOTE | 2019-02-18 06:41 | NUR ---
Report given to ANDREW Stewart
[2019-02-18 06:42] LABS: MEAN CORPUSCULAR HGB CONC 31 g/dl (33.0-37.0); MEAN PLATELET VOLUME 11.1 fl (7.4-10.4); PLATELET COUNT 138 K/mm3 (130-400); RED BLOOD COUNT 3.02 M/mm3 (4.20-5.60); REDCELL DISTRIBUTION WIDTH-CV 20.3 % (11.5-14.5)
[2019-02-18 06:54] LABS: HEMATOCRIT 32.2 % (42.0-52.0); MEAN CELL VOLUME 107 fl (80.0-100.0); MEAN CORPUSCULAR HEMOGLOBIN 33 pg (27.0-31.0)
[2019-02-18 07:03] LABS: ALBUMIN 3.3 gm/dL (3.5-5.0); CALCIUM 8.5 mg/dL (8.4-10.2); CREATININE, serum 4.45 (0.66-1.25); POTASSIUM 4.3 mmol/L (3.4-5.0)
--- NOTE | 2019-02-18 08:56 | NUR ---
Pt resting in bed. No sign of distress. Call light within reach. Vital signs stable.
[2019-02-18 08:59] LABS: ANISOCYTOSIS 1+; BAND 2 % (0-10); HYPOCHROMIA 1+; LYMPHOCYTE 8 % (20.0-51.0); NEUTROPHILS 87 % (42.0-75.2); PLATELET ESTIMATE NORMAL (NORMAL)
--- NOTE | 2019-02-18 13:51 | NUR ---
Primary nurse was assisted with [id number] patient care by [employer] [facility] Rebekah Fraser and [employer] instructor Letty Arthur RN-.
--- NOTE | 2019-02-18 21:00 | NUR ---
Patient assessed at this time. Alert and oriented, and able to make needs known. Denies having pain and discomfort at this time. States that he has a pain pump, and denies neeing any other pain medicine at this time. Peripheral IV to left AC flushed. Site is without redness, warmth, swelling, and pain. Reports SOB and dysypnea with exertion, denies at rest. On oxygen at 3 L/min via NC. Does wear CPAP at night as well. LS with expiratory crackles in upper lobes, diminished in lower lobes. HRR. Capillary refill less than 3 seconds. Non-tenting skin turgor. BSAx4. Dialysis catheter to right chest/abdomen area. Dressing to area is CDI. 2+ edema to LUE and LLE. Scab/crusting to left medial knee, open to air. Dressings to abrasions on left perez are CDI. Dressing to ulcer on left lateral ankle is CDI. Scaling/flaking to left foot. Scabs to left 1st/3rd toes. 4 bandaids to right stump are CDI. Voices no questions, needs, or concerns at this time. RT called as requested to assist with CPAP. Resting in bed with call light within reach. Given PRN Clonazepam as requested for anxiety.
--- NOTE | 2019-02-19 00:16 | NUR ---
Patient complianing of insomnia. Given PRN Temazepam as requested. Voices no other questions, needs, or concerns at this time. CPAP on.
[2019-02-19 02:04] VITALS: BP 105/68; PULSE 71; TEMP 98.3
[2019-02-19 04:11] VITALS: BP 117/62; PULSE 64; TEMP 98.2
--- NOTE | 2019-02-19 05:07 | NUR ---
Patient has been resting in bed with eyes closed since given PRN Temazepam. Has voiced no other questions, needs, or concerns. Has been wearing CPAP. Call light is within reach.
[2019-02-19 06:00] VITALS: BP 122/68; PULSE 64; TEMP 97.9
[2019-02-19 07:55] VITALS: BP 107/68; PULSE 64; TEMP 97
[2019-02-19 11:44] LABS: GRAN # 8.1 (1.4-6.5); GRAN % 89.1 % (42.2-75.2); HEMOGLOBIN 11.5 g/dl (13.5-18.0); LYMPH # 0.5 (1.2-3.4); LYMPH % 5.9 % (20.0-51.0); MEAN CELL VOLUME 105 fl (80.0-100.0); MEAN CORPUSCULAR HEMOGLOBIN 33 pg (27.0-31.0); MEAN CORPUSCULAR HGB CONC 32 g/dl (33.0-37.0); MEAN PLATELET VOLUME 10.7 fl (7.4-10.4); MONO # 0.3 (0.1-0.6); MONO % 3.7 % (1.7-9.3); PLATELET COUNT 153 K/mm3 (130-400); RED BLOOD COUNT 3.44 M/mm3 (4.20-5.60); REDCELL DISTRIBUTION WIDTH-CV 19.3 % (11.5-14.5)
--- NOTE | 2019-02-19 11:44 | NUR ---
AM SUMMARY: PATIENT UP TO RECLINER FOR BREAKFAST WITH ASSISTANCE BY PT. NO C/O OF PAIN. SEE FLOW SHEET FOR DOCEUMENTED FVS WITH IMPROVEMENT IN HYPOTENSION. DOES REPORT BEING ANXIOUS. SEE EMAR FOR CLONAZEPAM ADMINISTRATION. PIVOT TRANSFERS TO AND FROM RECLINER TO BED AND WC WITH MINIMAL ASSIST. TO DIALYSIS. SEE DIALSIS FLOW SHEET.
[2019-02-19 11:58] LABS: ALBUMIN 3.9 gm/dL (3.5-5.0); CALCIUM 8.9 mg/dL (8.4-10.2); CREATININE, serum 2.39 (0.66-1.25); HEMATOCRIT 36.2 % (42.0-52.0); PHOSPHOROUS 1.8 mg/dL (2.5-4.5); POTASSIUM 3.7 mmol/L (3.4-5.0)
--- NOTE | 2019-02-19 15:54 | NUR ---
GINNA met with the patient and the patient's , Ness, to review discharge plan and to discuss PT's recommendation of post-acute rehab. The patient was unhappy about the option, but his and him were in agreeance to post-acute rehab. SW presented and explained the Patient Choice Form to the patient's . The patient and Ness's only preference was [facility]. Patient Choice Form signed by Ness and she was provided a copy. GINNA contacted and faxed a referral to Isela at [facility]. SW awaiting their screen.
--- NOTE | 2019-02-19 16:49 | NUR ---
Isela, at [facility], reports that they are good to follow care; but will need updates to find out how he will transfer for dialysis. SW to continue to follow.
[2019-02-19 16:57] VITALS: BP 87/58; PULSE 88; TEMP 98.6
--- NOTE | 2019-02-19 20:15 | NUR ---
Patient assessed at this time. Alert and oriented x 4, and able to make needs known. Denies having pain and discomfort at this time. Peripheral IV to left AC flushed. Site is without redness, warmth, swelling, and pain. Reports SOB and dyspnea with exertion only, denies at rest. Respirations even and unlabored. On oxygen at 3 L/min via NC. LS CTA upper lobes, diminished lower lobes. HRR. Capillary refill less than 3 seconds. Non-tenting skin turgor. BSAx4. Crusting sore to left medial knee. Open to air. Dressings to abrasions on left perez are CDi. Dressing to ulcer on left lateral ankle CDI. Scaling/flaking to left foot. 1+ edema to LUE and LLE. Warmth continues to LLE. Continues on antibiotics for cellulitis to LLE. Denies pain and discomfort. Voices no questions, needs, or concerns at this time. Resting in bed watching tablet at this time. Call light is within reach.
[2019-02-20 04:50] VITALS: BP 108/58; PULSE 84; TEMP 97.5
--- NOTE | 2019-02-20 05:51 | NUR ---
Patient wore CPAP during the night. Woke up around 0500. Put on oxygen at 3 L/min via NC. Denies having pain and discomfort at this time. Voices no questions, needs, or concerns. Resting in bed watching TV at this time. Call light is within reach.
[2019-02-20 08:28] VITALS: BP 96/57; PULSE 75; TEMP 97.4
--- NOTE | 2019-02-20 08:30 | NUR ---
Pt is awake and A/Ox4, sitting up in recliner. He denies pain at this time. Saline lock to left FA is free of complications. Hepatic dialysis cath to right side of chest noted. Pt remains on 3L O2 per NC, resp. are even and unlabored. Pt denies any other needs.
--- NOTE | 2019-02-20 12:13 | NUR ---
chute worker faxed medical updates to Dahlia Serrano ([phone]) including facesheet, progress notes, nursing notes, and dialysis notes.
[2019-02-20 12:25] VITALS: BP 83/43; PULSE 82; TEMP 97.3
[2019-02-20 16:00] VITALS: BP 96/50; PULSE 73; TEMP 97.6
[2019-02-20 16:23] LABS: BASO % 0.1 % (0.0-2.0); EOS % 0.1 % (0-4.0); GRAN # 10.2 (1.4-6.5); GRAN % 87.8 % (42.2-75.2); HEMOGLOBIN 10.9 g/dl (13.5-18.0); LYMPH # 0.7 (1.2-3.4); LYMPH % 5.7 % (20.0-51.0); MEAN CELL VOLUME 108 fl (80.0-100.0); MEAN CORPUSCULAR HEMOGLOBIN 34 pg (27.0-31.0); MEAN CORPUSCULAR HGB CONC 31 g/dl (33.0-37.0); MEAN PLATELET VOLUME 10.8 fl (7.4-10.4); MONO # 0.6 (0.1-0.6); MONO % 5.3 % (1.7-9.3); PLATELET COUNT 158 K/mm3 (130-400); RED BLOOD COUNT 3.23 M/mm3 (4.20-5.60); REDCELL DISTRIBUTION WIDTH-CV 19.1 % (11.5-14.5)
[2019-02-20 16:25] LABS: HEMATOCRIT 34.8 % (42.0-52.0)
[2019-02-20 16:40] LABS: ALBUMIN 3.5 gm/dL (3.5-5.0); CALCIUM 8.4 mg/dL (8.4-10.2); PHOSPHOROUS 3.2 mg/dL (2.5-4.5); POTASSIUM 4.4 mmol/L (3.4-5.0)
[2019-02-20 16:53] LABS: CREATININE, serum 5.7 (0.66-1.25)
--- NOTE | 2019-02-20 17:35 | NUR ---
Pt had an uneventful shift. Continues to be without needs.
[2019-02-20 19:30] VITALS: BP 139/63; PULSE 71; TEMP 97.9
[2019-02-20 23:05] VITALS: BP 121/61; PULSE 91; TEMP 97.5
[2019-02-21 04:55] VITALS: BP 106/65; PULSE 77; TEMP 97.5
--- NOTE | 2019-02-21 06:54 | NUR ---
RESTING QUIETLY. NO c/o PAIN. PLANNED DIALYSIS TODAY.
[2019-02-21 08:01] VITALS: BP 95/53; PULSE 75; TEMP 97.8
[2019-02-21 10:11] LABS: EOS # 0.1 (0.0-0.7); GRAN % 76.3 % (42.2-75.2); HEMATOCRIT 37.2 % (42.0-52.0); HEMOGLOBIN 11.6 g/dl (13.5-18.0); LYMPH # 1.4 (1.2-3.4); LYMPH % 17.5 % (20.0-51.0); MEAN CELL VOLUME 107 fl (80.0-100.0); MEAN CORPUSCULAR HEMOGLOBIN 33 pg (27.0-31.0); MEAN CORPUSCULAR HGB CONC 31 g/dl (33.0-37.0); MEAN PLATELET VOLUME 10.1 fl (7.4-10.4); MONO # 0.3 (0.1-0.6); MONO % 4.1 % (1.7-9.3); PLATELET COUNT 143 K/mm3 (130-400); RED BLOOD COUNT 3.49 M/mm3 (4.20-5.60); REDCELL DISTRIBUTION WIDTH-CV 18.7 % (11.5-14.5)
--- NOTE | 2019-02-21 10:14 | NUR ---
Pt taken down to dialysis around 930am via wheelchair by aide and nursing staffing coordinator.
[2019-02-21 10:20] LABS: ALBUMIN 3.8 gm/dL (3.5-5.0); CALCIUM 8.2 mg/dL (8.4-10.2); PHOSPHOROUS 2.9 mg/dL (2.5-4.5); POTASSIUM 3.5 mmol/L (3.4-5.0)
[2019-02-21 10:22] LABS: CREATININE, serum 5.83 (0.66-1.25)
--- NOTE | 2019-02-21 13:45 | NUR ---
Pt returned to room from dialysis around 1330. Pt alert and oriented. Pt sitting in recliner with call light in reach. Pt does leg pumps with left lower extremity and encouraged to elevate when possible. Pt has implanted pain pump to manage pain.
--- NOTE | 2019-02-21 14:23 | NUR ---
Isela, at [facility], reports that they are able to accept the patient for a skilled stay. GINNA to inform the patient and the patient's . GINNA faxed updates to [facility].
[2019-02-21 15:58] VITALS: BP 78/49; PULSE 90; TEMP 98.3
[2019-02-21 17:32] VITALS: BP 88/51
--- NOTE | 2019-02-21 18:39 | NUR ---
Pt stable and alert. Pt sitting up in recliner with left leg elevated. Pt does not have written dressing orders and spouse not present. Pt states wound needs to be changed today probablly. Will update cage shift manager of dressing change status. Left perez has no drainage noted on dressing and left ankle has small pin size drainage noted on mepilex. LLE decrease in inflammation related to marking and decreased redness not warm to touch. Pt left arm is 3+ edema noted. Pt IV no redness but in left arm that is edematous. Pt IV is INT.Pt has call light in reach and denies needs at this time.
--- NOTE | 2019-02-21 19:41 | NUR ---
Pt report given to Priscilla MORALES.
[2019-02-21 20:00] VITALS: BP 88/51; PULSE 93; TEMP 98.3
[2019-02-21 23:52] VITALS: BP 105/60; PULSE 80; TEMP 98.4
[2019-02-22 04:00] VITALS: BP 107/62; PULSE 73; TEMP 97.9
[2019-02-22 06:33] LABS: ALBUMIN 3.2 gm/dL (3.5-5.0); CREATININE, serum 5.16 (0.66-1.25); PHOSPHOROUS 3.3 mg/dL (2.5-4.5)
[2019-02-22 07:04] LABS: HEMOGLOBIN 11.3 g/dl (13.5-18.0); MEAN CELL VOLUME 107 fl (80.0-100.0); MEAN CORPUSCULAR HEMOGLOBIN 34 pg (27.0-31.0); MEAN CORPUSCULAR HGB CONC 32 g/dl (33.0-37.0); MEAN PLATELET VOLUME 10.7 fl (7.4-10.4); PLATELET COUNT 123 K/mm3 (130-400); RED BLOOD COUNT 3.35 M/mm3 (4.20-5.60); REDCELL DISTRIBUTION WIDTH-CV 18.7 % (11.5-14.5)
[2019-02-22 07:20] LABS: HEMATOCRIT 35.7 % (42.0-52.0)
[2019-02-22 07:40] LABS: BAND 5 % (0-10); EOSINOPHIL 3 % (0-4); LYMPHOCYTE 12 % (20.0-51.0); METAMYELOCYTE 1 % (0-0); NEUTROPHILS 70 % (42.0-75.2); NUCLEATED RED BLOOD CELL 1 (0-6)
[2019-02-22 07:44] LABS: ANISOCYTOSIS 1+; HYPOCHROMIA 1+; PLATELET ESTIMATE DECREASED (NORMAL); TARGET CELLS 1+
[2019-02-22 07:55] VITALS: BP 97/56; PULSE 97; TEMP 97.6
--- NOTE | 2019-02-22 07:58 | NUR ---
PT HAD AN UNEVENTFUL NIGHT. SET UP HIS OWN C-PAP WITH MINIMAL ASSIST. 2:1 ASSIST TO GETTING UP TO COMMODE. LARGE, SOFT BM. DRESSINGS TO LLE CHANGED. NO DRAINAGE FROM ANY OF THE WOUNDS. HEPATIC CATH INTACT. DRESSING WAS CHANGED IN DIALYSIS. WOKE UP THIS MORNING C/O FEELING NAUSEATED AND IN A LOT OF PAIN. DILAUDID 4MG GIVEN FOR PAIN RATED 8/10. ASSIST TO RECLINER. CALL LIGHT IN REACH.
--- NOTE | 2019-02-22 08:30 | NUR ---
Pt awake and A/Ox4, sitting up in the recliner. He states he continues to have chronic back pain rating it a 7/10. Denies any need for additional pain medication. Pt also reports nausea. Dr. Guerrier notified and order for PRN zofran obtained and given. Saline lock to left AC is free of complications. Hepatic cath noted. Leg dressings changed by shift mechanic and are CDI. Pt denies any other needs.
[2019-02-22 12:56] VITALS: BP 91/55; PULSE 79; TEMP 98
--- NOTE | 2019-02-22 13:04 | NUR ---
SW contacted and faxed updates to Isela at [facility].
--- NOTE | 2019-02-22 15:15 | NUR ---
Dr. Sukhi Moore's RN here to fill pt's pain pump.
[2019-02-22 17:21] VITALS: BP 104/60; PULSE 76; TEMP 97.4
[2019-02-22 20:12] VITALS: BP 113/62; PULSE 81; TEMP 97.9
--- NOTE | 2019-02-22 20:35 | NUR ---
Shift assessment complete. Pt resting in bedside recliner, awake, a&o, cooperative c cares. Pt c/o pain rated "7/10" to back et LLE; PRN pain public policy mediator per req. Pt denies any other c/o. INT patent. O2 per NC. Pt denies further needs at this time. Call light in reach, will continue to monitor.
[2019-02-22 22:27] VITALS: BP 119/64; PULSE 114; TEMP 97.7
[2019-02-23 07:23] VITALS: BP 95/48; PULSE 73; TEMP 97.2
[2019-02-23 07:53] LABS: ALBUMIN 3.3 gm/dL (3.5-5.0); CREATININE, serum 6.85 (0.66-1.25); PHOSPHOROUS 3.8 mg/dL (2.5-4.5); POTASSIUM 4.2 mmol/L (3.4-5.0)
[2019-02-23 08:00] LABS: BASO % 0.1 % (0.0-2.0); EOS # 0.3 (0.0-0.7); EOS % 3.5 % (0-4.0); GRAN # 5.3 (1.4-6.5); GRAN % 71.5 % (42.2-75.2); HEMOGLOBIN 10.5 g/dl (13.5-18.0); LYMPH # 1.2 (1.2-3.4); LYMPH % 15.4 % (20.0-51.0); MEAN CELL VOLUME 108 fl (80.0-100.0); MEAN CORPUSCULAR HEMOGLOBIN 34 pg (27.0-31.0); MEAN CORPUSCULAR HGB CONC 31 g/dl (33.0-37.0); MEAN PLATELET VOLUME 11.2 fl (7.4-10.4); MONO # 0.6 (0.1-0.6); MONO % 8.4 % (1.7-9.3); PLATELET COUNT 112 K/mm3 (130-400); RED BLOOD COUNT 3.09 M/mm3 (4.20-5.60); REDCELL DISTRIBUTION WIDTH-CV 18.3 % (11.5-14.5)
[2019-02-23 08:01] LABS: HEMATOCRIT 33.4 % (42.0-52.0)
--- NOTE | 2019-02-23 08:15 | NUR ---
Assessment complete. Pt sitting up in chair, A&O x 3. Pt denies pain at this time. Dressings to left lower ext CDI. O2 at 3 L/min via NC. POC reviewed with pt. No further needs reported. Call light in reach.
--- NOTE | 2019-02-23 09:10 | NUR ---
Pt to Express unit rm 18 for hemodialysis via WC accompanied by SUPERVISOR PURIFICATION.
[2019-02-23] MEDS ORDERED: CEPHALEXIN500 M1 PO (10:10)
[2019-02-23] MEDS ORDERED: IMDUR 60MG60 MG/TAB PO (10:11)
[2019-02-23] MEDS ORDERED: RESTORIL 1515 MG/CAP PO (10:12)
--- NOTE | 2019-02-23 13:11 | NUR ---
The patient is to discharge today, 02/23, to [facility] for a skilled stay. Transportation was scheduled for around 1500, via [facility]. GINNA informed the patient's RN and the patient's (Ness), via phone. They were both in agreeance to the time. GINNA also explained the IM form to Ness. Ness gave SW her verbal consent. No additional needs at this time.
[2019-02-23 13:17] VITALS: BP 95/48; PULSE 73; TEMP 97.2
--- NOTE | 2019-02-23 15:22 | NUR ---
Pt discharged to [facility] via WC. Discharge paperwork given to [facility] transportation staff.
--- NOTE | 2019-02-23 15:56 | NUR ---
Attempted to call report to nurse at [facility]. No answer.
== END 2019-02-23 15:05 | DRG 602 ==
LOC: COL.ER 18:57 → MEDICAL 20:52
PROVIDERS: Emergency Medicine; ADMIT Internal Medicine Nephrology
DX: L03.116 Cellulitis of left lower limb (principal); N18.6 End stage renal disease; G93.41 Metabolic encephalopathy; K50.90 Crohn's disease, unspecified, without complications; E27.40 Unspecified adrenocortical insufficiency; L97.229 Non-pressure chronic ulcer of left calf with unspecified severity; L97.329 Non-pressure chronic ulcer of left ankle with unspecified severity; I87.8 Other specified disorders of veins; G89.29 Other chronic pain; Z66 Do not resuscitate; D63.1 Anemia in chronic kidney disease; G47.33 Obstructive sleep apnea (adult) (pediatric); J44.9 Chronic obstructive pulmonary disease, unspecified; K21.9 Gastro-esophageal reflux disease without esophagitis; I95.9 Hypotension, unspecified; M45.9 Ankylosing spondylitis of unspecified sites in spine; E87.5 Hyperkalemia; G40.909 Epilepsy, unspecified, not intractable, without status epilepticus; E78.5 Hyperlipidemia, unspecified; E66.9 Obesity, unspecified; I25.2 Old myocardial infarction; F41.9 Anxiety disorder, unspecified; Z79.82 Long term (current) use of aspirin; Z79.891 Long term (current) use of opiate analgesic; Z99.81 Dependence on supplemental oxygen; Z99.2 Dependence on renal dialysis; Z89.611 Acquired absence of right leg above knee; Z88.0 Allergy status to penicillin
CPT/HCPCS: A4216; J0692; J0882; J1644; J1720; J2405; J3010; J3370; J7030; J7050; P9016

== ENCOUNTER 2019-02-26 15:56 | Inpatient (IN) | payer MEDICARE, OTHER ==
[~2019-02-26] VITALS: Ht 182.9 cm; Wt 87.0 kg
[~2019-02-26 15:56] MED LIST changes: +ARANESP0.06 MG/0. SQ; +B-121000 MCG PO; +CALPHRON667 MG PO; +FERRO-TIME325 MG PO; +LASIX 40MG TABL40 MG PO; +RENAGEL800 MG PO; +RESTORIL 1515 MG/CAP PO; +RESTORIL30 MG
[2019-02-26 16:54] LABS: BASO % 0.3 % (0.0-2.0); EOS % 0.3 % (0-4.0); GRAN # 9.4 (1.4-6.5); GRAN % 81.1 % (42.2-75.2); HEMOGLOBIN 10.4 g/dl (13.5-18.0); LYMPH # 0.8 (1.2-3.4); LYMPH % 6.8 % (20.0-51.0); MEAN CELL VOLUME 108 fl (80.0-100.0); MEAN CORPUSCULAR HEMOGLOBIN 33 pg (27.0-31.0); MEAN CORPUSCULAR HGB CONC 31 g/dl (33.0-37.0); MONO # 1.3 (0.1-0.6); MONO % 10.8 % (1.7-9.3); PLATELET COUNT 111 K/mm3 (130-400); RED BLOOD COUNT 3.13 M/mm3 (4.20-5.60); REDCELL DISTRIBUTION WIDTH-CV 18.6 % (11.5-14.5)
[2019-02-26 17:06] LABS: HEMATOCRIT 33.8 % (42.0-52.0)
[2019-02-26 17:15] LABS: ALBUMIN 3.3 gm/dL (3.5-5.0); BILIRUBIN,TOTAL 0.5 mg/dL (0.0-1.0); C-REACTIVE PROTEIN 6.7 mg/dL (0.0-0.9); CALCIUM 8.1 mg/dL (8.4-10.2); CREATININE, serum 5.71 (0.66-1.25); MAGNESIUM 2.1 mg/dL (1.6-2.3); POTASSIUM 4.3 mmol/L (3.4-5.0)
[2019-02-26 17:31] LABS: TROPONIN-I 0.049 ng/mL (0.000-0.035)
--- NOTE | 2019-02-26 19:40 | NUR ---
RECEIVED PATIENT PER CART FROM ED, FAMILY AT BEDSIDE. PATIENT ABLE TO HELP MOVE SELF FROM CART TO BED. HAS A RIGHT AKA. LEFT LOWER LEG WRAPPED FROM WOUND CARE TODAY. HAS AN IV SITE TO LEFT AC WITH IV VANCOMYCIN INFUSING WITHOUT REDNESS OR SWELLING. PATIENT IS DEAF IN RT EAR AND [place] IN LEFT EAR. ABLE TO ANSWER QUESTIONS APPROPRIATELY. IS ALERT AND ORIENTED. PATIENT HAS A RT ABDOMEN HEPATIC DIALYSIS CATHETER. LEFT ARM IS EDEMATOUS. RIGHT ARM HAS A CLOTTED FISTULA. PATIENT DOES MAKE URINE, ESRD WITH DIALYSIS DAYS .
[2019-02-26 20:45] VITALS: BP 82/49; PULSE 87; TEMP 97.8
[2019-02-26 21:00] VITALS: BP 82/49; PULSE 87; TEMP 97.8
--- NOTE | 2019-02-26 22:30 | NUR ---
REMOVED DRESSING FROM LEFT LOWER LEG PER DR TAVERAS REQUEST. LOWER LEG REDDENED, OUTLINE DRAWN. MILD EDEMA NOTED. PATIENT REPORTS LEG LOOKS IMPROVED. PLACED LEFT FOOT IN HEEL BOOT FOR COMFORT. REWRAPPED LOOSE KERLIX AROUND LEG. NO DRAINAGE NOTED. DOES HAVE PADDED DRSG TO LEFT OUTER ANKLE AND LEFT INNER KNEE.
--- NOTE | 2019-02-26 22:46 | NUR ---
TAKES HS MEDS INCLUDING CLONAZEPAM, TEMAZEPAM AND DILAUDID PO.
[2019-02-27] VITALS (7 sets, daily range): BP systolic 88–108; BP diastolic 52–81; PULSE 56–92; TEMP 97.4–98.1
--- NOTE | 2019-02-27 00:30 | NUR ---
PATIENT RESTING WELL WITH CPAP ON. MANUAL B/P READINGS OBTAINED.
--- NOTE | 2019-02-27 05:30 | NUR ---
Patient has Oxygen on at 3L/NC. IV med given at this time.
--- NOTE | 2019-02-27 08:00 | NUR ---
Patient resting in bed at this time. Patient rouses with some effort, alert and oriented when awake, answers questions appropriately. Telemetry in place per order. Dressing to left leg is CDI. Patient denies pain or needs at this time, call light within reach.
[2019-02-27 08:51] LABS: ALBUMIN 3.1 gm/dL (3.5-5.0); CREATININE, serum 6.44 (0.66-1.25); PHOSPHOROUS 4.1 mg/dL (2.5-4.5); POTASSIUM 5.3 mmol/L (3.4-5.0)
--- NOTE | 2019-02-27 08:56 | NUR ---
Vancomycin Initial Dosing Pharmacy Note Ordering provider: Ha Guerrier MD Indication/duration: bacteremia, 5 days Relevant comorbidities: L-leg cellulitis, Dialysis on MoWeFr, R-abdominal pain below HD cathedar LABS: SCr 6.44, CrCl~12, GFR 10 Recommendation: Pharmacy dosing based on levels. Will check a random Vancomycin level prior to dialysis on 02/28/19. Pharmacy will continue to monitor. Loading dose: 1.5 grams Maintenance dose: based on random levels Trough goal: 15-20 ug/mL
--- NOTE | 2019-02-27 14:12 | NUR ---
Plan to return home with Ness as care support. SW met with patient in room. Patient is bharti hard of hearing and recieves information better on his left side at a higher monotone voice. Patient reports that his home is completely furnished to support his daily living. Patient reports that he has two scooters for mobility. Charut reports that he has a CPAP and os con at 3 lts during the dayu and 5 at night with pap machince. Patient reports having a stair life and elevator in home to get him on any level of the house. Patient reports having a pain pump, bed rails, chair lift, and hearing adaptations. PCP is reported as Dr. Hines. Patient reports attending [facility] 3x a week. Patient also consults with Dr. Guerrier. [facility] at the local [facility]. No additional concerns identified.
--- NOTE | 2019-02-27 17:52 | NUR ---
Patient eating dinner at this time. Patient has remained alert and oriented during the shift, no indications of altered mental state. Patient dozes frequently but has remained easy to rouse. Patient has not complained of pain or nausea. Patient denies needs at this time, call light within reach
--- NOTE | 2019-02-27 21:00 | NUR ---
PATIENT IN BED, IS ALERT AND ORIENTED X4. DROWSY. READY FOR NIGHT MEDS. SL TO LEFT AC FLUSHES WELL, IV MED GIVEN. LEFT ARM LESS EDEMATOUS TODAY THAN YESTERDAY. DRESSING TO LEFT LOWER LEG IS OFF, SKIN IS MILDLY EDEMATOUS AND REDDENED. DENIES NEED FOR HEEL BOOT ON. HAS NEW SKIN TEAR TO RIGHT HAND, DRSG INTACT. DIALYSIS CATHETER TO RT ABDOMEN INTACT. WEARS OXYGEN AT 3L/NC.
[2019-02-28 03:03] VITALS: BP 96/53; PULSE 73; TEMP 98
--- NOTE | 2019-02-28 06:35 | NUR ---
Patient has rested well this shift on CPAP. SL to left AC remains patent.
[2019-02-28 07:04] VITALS: BP 92/59; PULSE 70; TEMP 97.4
[2019-02-28 07:20] LABS: BASO % 0.1 % (0.0-2.0); GRAN # 10.1 (1.4-6.5); GRAN % 88.7 % (42.2-75.2); HEMATOCRIT 32.7 % (42.0-52.0); HEMOGLOBIN 10.2 g/dl (13.5-18.0); LYMPH # 0.8 (1.2-3.4); LYMPH % 6.9 % (20.0-51.0); MEAN CELL VOLUME 109 fl (80.0-100.0); MEAN CORPUSCULAR HEMOGLOBIN 34 pg (27.0-31.0); MEAN CORPUSCULAR HGB CONC 31 g/dl (33.0-37.0); MEAN PLATELET VOLUME 11.3 fl (7.4-10.4); MONO # 0.4 (0.1-0.6); MONO % 3.6 % (1.7-9.3); PLATELET COUNT 121 K/mm3 (130-400); RED BLOOD COUNT 3.01 M/mm3 (4.20-5.60)
[2019-02-28 07:34] LABS: ALBUMIN 3.5 gm/dL (3.5-5.0); CALCIUM 8.1 mg/dL (8.4-10.2); CREATININE, serum 8.33 (0.66-1.25); PHOSPHOROUS 5.4 mg/dL (2.5-4.5); POTASSIUM 5.5 mmol/L (3.4-5.0)
--- NOTE | 2019-02-28 08:40 | NUR ---
Patient in bed resting. Alert and oriented x 3. Shift assessment complete. Edema noted to left upper extremity, patient states better than yesterday. Edema and redness noted to Left lower extremity, patient states also looks better than yesterday. Denies pain at this time. Dressings noted to left great toe, left heel and left knee. patient states ulcers dressed by wound care. Denies further needs at this time.
--- NOTE | 2019-02-28 11:50 | NUR ---
Initial visit; Patient and his thanked County Extension Agent for stopping and offering encouragement and God's blessings.
[2019-02-28 11:54] VITALS: BP 92/56; PULSE 82; TEMP 97.3
--- NOTE | 2019-02-28 12:44 | NUR ---
Patient down for dialysis
--- NOTE | 2019-02-28 13:46 | NUR ---
GINNA met with the patient and the patient's , Ness ([phone]), to review discharge plan. The patient recently discharged form the hospital, 02/23, and went to [facility] for a skilled stay. The patient's reports that the plan is for the patient to return back to [facility] for a skilled stay. GINNA presented and explained the Patient Choice Form to the patient's . The patient's verbalized understanding, signed, and she declined a copy. GINNA contacted and faxed updates to Isela at [facility] and will continue to follow.
[2019-02-28 16:30] VITALS: BP 104/60; PULSE 86; TEMP 97.6
--- NOTE | 2019-02-28 16:41 | NUR ---
Patient up from Dialysis.
[2019-02-28] MEDS ORDERED: CEPHALEXIN500 M1 PO (17:09)
--- NOTE | 2019-02-28 18:23 | NUR ---
Patient has done well throughout the day. Denies pain or further needs at this time. Will report off to welder 2nd shift.
[2019-02-28 20:26] VITALS: BP 100/58; PULSE 89; TEMP 98
--- NOTE | 2019-02-28 20:30 | NUR ---
Request medications be given at 2215 to 2230. Denies needs at this time.
--- NOTE | 2019-02-28 22:29 | NUR ---
Resting in bed. Assessment complete. Lungs clear. Heart sounds normal. Bowels active x4. Left lower extremity pulses present. Edema to left lower leg +2. Left upper extremity +3 edema. Left great toe/left ankle/left knee wounds present. Dressings in place at this time. CDI. Left upper arm bruising present. Right hepatic dialysis access appears free of complications at this time. Patient denies pain. Requested PRN restril and schedule klonopin. Patient states "I take restoril, klonopin, percocet and a benadryl at home at bedtime normally." Provided to patient. INT left AC without complications. Denies pain. Denies other needs at this time. Call light in reach.
--- NOTE | 2019-02-28 23:56 | NUR ---
Resting in bed. Denies needs. Call light in reach.
[2019-03-01 00:32] VITALS: BP 101/62; PULSE 78; TEMP 98.5
[2019-03-01 03:57] VITALS: BP 105/61; PULSE 79; TEMP 98.7
--- NOTE | 2019-03-01 06:42 | NUR ---
Patient had uneventful night. Required x1 dose of restoril during night. Resting in bed this AM. Call light in reach.
--- NOTE | 2019-03-01 06:48 | NUR ---
Report given to ANDREW Bueon
[2019-03-01 06:59] LABS: BASO % 0.1 % (0.0-2.0); GRAN # 7.7 (1.4-6.5); GRAN % 85.8 % (42.2-75.2); HEMOGLOBIN 10.5 g/dl (13.5-18.0); LYMPH # 0.8 (1.2-3.4); LYMPH % 8.6 % (20.0-51.0); MEAN CELL VOLUME 108 fl (80.0-100.0); MEAN CORPUSCULAR HEMOGLOBIN 33 pg (27.0-31.0); MEAN CORPUSCULAR HGB CONC 31 g/dl (33.0-37.0); MONO # 0.4 (0.1-0.6); MONO % 4.9 % (1.7-9.3); PLATELET COUNT 124 K/mm3 (130-400); RED BLOOD COUNT 3.18 M/mm3 (4.20-5.60); REDCELL DISTRIBUTION WIDTH-CV 18.1 % (11.5-14.5)
[2019-03-01 07:03] LABS: HEMATOCRIT 34.3 % (42.0-52.0)
[2019-03-01 07:11] VITALS: BP 101/61; PULSE 74; TEMP 97.3
[2019-03-01 07:15] LABS: ALBUMIN 3.5 gm/dL (3.5-5.0); CALCIUM 8.3 mg/dL (8.4-10.2); CREATININE, serum 5.66 (0.66-1.25); PHOSPHOROUS 4.4 mg/dL (2.5-4.5); POTASSIUM 4.8 mmol/L (3.4-5.0)
--- NOTE | 2019-03-01 08:00 | NUR ---
Patient in bed resting. Alert and oriented x 3. Shift assessment complete. Patient denies pain or further needs at this time. States edema to left hand looks better than yesterday also states that cellulitis to left leg looks better today.
[2019-03-01 10:56] VITALS: BP 101/61; PULSE 74; TEMP 97.3
--- NOTE | 2019-03-01 11:01 | NUR ---
Isela, at [facility], reports that they are able to accept the patient back. The patient is to discharge today, 03/01, back to [facility] for a skilled stay. Transportation was scheduled for 1200, via [facility]. GINNA informed the patient's RN and his (Ness) via phone. They were both in agreeance to this time. GINNA also explained the IM form to Ness. Ness gave SW her verbal consent. No additional needs at this time.
[2019-03-01 11:13] VITALS: BP 94/47; PULSE 78; TEMP 97.7
--- NOTE | 2019-03-01 11:45 | NUR ---
First visit from the loss prevention specialist. No needs right now.
--- NOTE | 2019-03-01 12:15 | NUR ---
Assisted patient to bedside comode. Patient transferes himself without difficulty. Assisted patient to dress. Patient out by wheelchair to [place]. Denies further needs at this time. INT discontinued, catheter tip intact.
== END 2019-03-01 12:30 | DRG 70 ==
LOC: COL.ER 15:56 → SURG 17:56
PROVIDERS: Emergency Medicine; Nurse Practitioner; ADMIT Internal Medicine Nephrology
DX: G93.41 Metabolic encephalopathy (principal); N18.6 End stage renal disease; L03.116 Cellulitis of left lower limb; E27.40 Unspecified adrenocortical insufficiency; I95.9 Hypotension, unspecified; G89.29 Other chronic pain; G47.30 Sleep apnea, unspecified; E83.51 Hypocalcemia; D63.1 Anemia in chronic kidney disease; E78.5 Hyperlipidemia, unspecified; K21.9 Gastro-esophageal reflux disease without esophagitis; J44.9 Chronic obstructive pulmonary disease, unspecified; E83.39 Other disorders of phosphorus metabolism; R04.0 Epistaxis; Z90.2 Acquired absence of lung [part of]; Z89.611 Acquired absence of right leg above knee
CPT/HCPCS: J1644; J1720; J3370; J7030; J7050

== ENCOUNTER 2019-09-10 09:53 | Inpatient (IN) | payer MEDICARE, OTHER ==
[~2019-09-10] VITALS: Ht 182.9 cm; Wt 79.2 kg
[~2019-09-10 09:53] MED LIST changes: -RENAGEL800 MG PO; +TYLENOL 325MG325 MG PO
[2019-09-10 11:14] LABS: INR 1.2 (0.8-3.0); PROTHROMBIN TIME 13.6 SECONDS (9.7-12.8)
[2019-09-10 11:17] LABS: PARTIAL THROMBOPLASTIN TIME 32.8 SECONDS (26.0-37.0)
[2019-09-10 11:21] LABS: BASO % 0.3 % (0.0-2.0); EOS # 0.1 (0.0-0.7); GRAN % 73.5 % (42.2-75.2); HEMOGLOBIN 10.1 g/dl (13.5-18.0); LYMPH # 1.2 (1.2-3.4); MEAN CELL VOLUME 111 fl (80.0-100.0); MEAN CORPUSCULAR HEMOGLOBIN 35 pg (27.0-31.0); MEAN CORPUSCULAR HGB CONC 31 g/dl (33.0-37.0); MEAN PLATELET VOLUME 12.6 fl (7.4-10.4); MONO # 0.5 (0.1-0.6); MONO % 7.6 % (1.7-9.3); PLATELET COUNT 74 K/mm3 (130-400); RED BLOOD COUNT 2.92 M/mm3 (4.20-5.60); REDCELL DISTRIBUTION WIDTH-CV 14.9 % (11.5-14.5)
[2019-09-10 11:24] LABS: HEMATOCRIT 32.4 % (42.0-52.0)
[2019-09-10 11:35] LABS: ALBUMIN 3.8 gm/dL (3.5-5.0); BILIRUBIN,TOTAL 0.6 mg/dL (0.0-1.0); C-REACTIVE PROTEIN 1.3 mg/dL (0.0-0.9); CALCIUM 8.7 mg/dL (8.4-10.2); CREATININE, serum 3.92 (0.66-1.25); POTASSIUM 4.1 mmol/L (3.4-5.0); TOTAL PROTEIN 6.6 gm/dL (6.4-8.2)
[2019-09-10 16:07] VITALS: BP 89/43; PULSE 83; TEMP 97.9
[2019-09-10 16:12] VITALS: BP 89/43; PULSE 83; TEMP 97.9
[2019-09-10] MEDS ORDERED: VITAMIN B11000 MCG/M IM (16:13)
--- NOTE | 2019-09-10 16:16 | NUR ---
Dr Guerrier here to see patient.
--- NOTE | 2019-09-10 17:00 | NUR ---
Patient alert and oriented, answers questions appropriately. See assessment. RUE with sling in place, pulses palpable. RLE AKA with no redness or bruising noted. LLE chronic wound with wound bed pink, small areas of necrotic tissue noted, rolled edges noted, scant amount of serosanguinous drainage noted, wound has foul odor. LLE laceration with dressing CDI. Small laceration to right elbow with bandaid intact. No c/o at this time.
--- NOTE | 2019-09-10 19:31 | NUR ---
Patient resting in bed talking on phone during change of shift report from day shift nurse, Suzi. No other needs reported at time of report.
--- NOTE | 2019-09-10 20:00 | NUR ---
DECREASED RUE MOVEMENT/STRENGTH D/T IMMOBILIZER/FX, DENIES NUMBNESS/TINGLING TO RUE, ABLE TO WIGGLE R HAND FINGERS ON COMMAND. TELE CONTINUES, LEADS IN PLACE. SALINE LOCK TO L UPPER ARM IN PLACE. OXYGEN PER NC IN PLACE AT 2 LPM. PATIENT STILL TALKING ON PHONE.
[2019-09-10 20:04] VITALS: BP 111/49; PULSE 83; TEMP 98.2
--- NOTE | 2019-09-10 23:35 | NUR ---
PATIENT SLEEPING WITH CPAP ON WITH O2 BLEED IN AT 5L, DURING REPORT GIVEN TO NIGHT NURSE FLAT GRINDER OPERATOR, REZA. PATIENT WITH NO OTHER NEEDS REPORTED.
--- NOTE | 2019-09-10 23:40 | NUR ---
Received report from ANDREW Caballero. Pt currently sleeping in bed. Pt has his call light within reach and his bed is in lowest position.
[2019-09-10 23:49] VITALS: BP 106/51; PULSE 84; TEMP 97.3
[2019-09-11] VITALS (7 sets, daily range): BP systolic 74–94; BP diastolic 30–52; PULSE 71–81; TEMP 97.6–97.9
--- NOTE | 2019-09-11 02:00 | NUR ---
Pt was sleeping in bed and I went in to look over his feet and do a quick assessment. Pt did inform the previous nurse he didn't want to be waken up after 0300. Pt leg was assessed and there was a large amount of drainage on his sheets. Pt bed was changed at this time. A need under pad was placed underneath the pt leg and his bottom. Pt was repositioned also at this time. Pt seemed to be very emotional and stated several times that it doen't matter about my sheets I'm going to . Pt did also inform me that he was going to hospice. Pt stated that he was in so much pain and he was given pain medication at this time. Pt has his call light within reach and his bed is in lowest position.
--- NOTE | 2019-09-11 02:30 | NUR ---
Pt has a clean pad underneath his left leg due to drainage from his dressing. Pt did not want his leg messed with at this time. So just a clean pad underneath his leg was done. Pt has a left ankle dressing and the area has 4x4's and coban on it. Pt foot does look very swollen. Pt also has a dressing on his right elbow that has some dry drainage on the bandage. Pt is currently resing in bed and has his call light within reach. Will follow up with pt and see if he will allow me to reinforce his dressing and make sure that the drainage is minimized as much as possible. Did inform pt that I just wanted to make sure that he was lying in a clean bed.
--- NOTE | 2019-09-11 05:02 | NUR ---
Pt currently sleeping in bed.
--- NOTE | 2019-09-11 06:30 | NUR ---
When in to check on pt this morning. Pt requested something for pain. Pt was given something for pain. Pt was also given a warm blanket at this time. Pt was ok with me reiniforcing his dressing on his left leg. I used 4x4's and coban to cover the bandages that were in place. On his left lower leg I applied a new ABD on the bandage and applied more coban to this. Pt is currently sitting up in bed I help him put on his left hearing aid at this time. Pt has his call light within reach and his bed is in lowest position.
[2019-09-11] MEDS ORDERED: RESTORIL30 MG (11:12)
--- NOTE | 2019-09-11 11:12 | NUR ---
This nurse spoke with patient's and she reported that patient has been taking Temazepam at bed time for a sleep aid. This was added to patient's home med records and am awaiting for physician to review this med. Patient currently resting in bed call light in reach. Will continue to monitor.
--- NOTE | 2019-09-11 14:50 | NUR ---
SW met with patient about DC. Patient reports that he resides with his Ness . Client indicated that he and his have a lot of supports. He has a motirized chair, elevator in the home, accessible van with chair, stair lift. Client shares that his PCP is Dr. Erickson and Dr. Guerrier. Patient reports that he obtains medication at the [facility] [place] or [facility] locally for chort term. DPOA is and DTR. Patient reports that he uses 3 lts of 02 during the day and 5 of 02 at night with bipap. Does not anticipate any addtional needs. [facility]. Will continue to follow for care.
--- NOTE | 2019-09-11 18:33 | NUR ---
Patient resting in bed at this time, call light in reach. Patient reporting pain to his right shoulder and given prn dilaudid this morning. He has had very low blood pressure throughout the day. Refused most of breakfast and all of lunch, but did have this nurse assist him with eating 50% of his supper tonight. Patient was seen by Dr. Guerrier this afternoon. See new orders.
--- NOTE | 2019-09-11 21:00 | NUR ---
Patient resting in bed at this time. Patient is alert and oriented, answers questions appropriately. Patient requests RT assist him with setting up his cpap, called RT and passed on the request. Patient denies pain or needs at this time, call light within reach.
[2019-09-12] VITALS (8 sets, daily range): BP systolic 70–113; BP diastolic 31–65; PULSE 66–89; TEMP 97.4–98.4
--- NOTE | 2019-09-12 05:49 | NUR ---
Patient currently resting in bed at this time. Patient requested PRN pain medication once this shift and has appeared to rest comfortably. Patient wore his bipap for most of the night, stated he had a headache when he asked for assistance removing it this morning. Declined medication for the headache, states it is a normal side effect of his bipap and it will resolve shortly. Patient denies further needs at this time, call light within reach.
--- NOTE | 2019-09-12 09:20 | NUR ---
Medicated with Dilaudid for c/o right shoulder pain. Sling and swathe intact. Moves fingers well. Alert. Depressed about condition and inability to have surgery to repair shoulder.
--- NOTE | 2019-09-12 18:30 | NUR ---
Medicated for pain x 2 this shift. Repositioned in bed with assist.
[2019-09-13 01:36] VITALS: BP 89/26; PULSE 74
[2019-09-13 04:38] VITALS: BP 119/85; PULSE 79
--- NOTE | 2019-09-13 05:35 | NUR ---
Patient resting in bed at this time. Patient has requested PRN pain medication once during the shift and wore his cpap for most of the night. Patient would only allow minimal repositioning. Patient was upset to be woken for vital signs every four hours overnight but did sleep most of the night. Patient denies needs at this time, call light within reach, bed alarm on.
[2019-09-13 07:54] VITALS: BP 80/48; PULSE 79; TEMP 97.7
[2019-09-13 08:57] LABS: BASO % 0.2 % (0.0-2.0); EOS % 0.7 % (0-4.0); GRAN % 69.4 % (42.2-75.2); LYMPH # 1.1 (1.2-3.4); LYMPH % 19.8 % (20.0-51.0); MEAN CELL VOLUME 110 fl (80.0-100.0); MEAN CORPUSCULAR HGB CONC 32 g/dl (33.0-37.0); MEAN PLATELET VOLUME 12.7 fl (7.4-10.4); MONO # 0.6 (0.1-0.6); MONO % 9.6 % (1.7-9.3); PLATELET COUNT 72 K/mm3 (130-400); RED BLOOD COUNT 2.49 M/mm3 (4.20-5.60); REDCELL DISTRIBUTION WIDTH-CV 14.7 % (11.5-14.5)
[2019-09-13 08:58] LABS: HEMATOCRIT 27.3 % (42.0-52.0); HEMOGLOBIN 8.7 g/dl (13.5-18.0); MEAN CORPUSCULAR HEMOGLOBIN 35 pg (27.0-31.0)
[2019-09-13 09:04] LABS: ALBUMIN 3.4 gm/dL (3.5-5.0); CALCIUM 7.7 mg/dL (8.4-10.2); CREATININE, serum 8.01 (0.66-1.25); PHOSPHOROUS 4.8 mg/dL (2.5-4.5); POTASSIUM 5.7 mmol/L (3.4-5.0)
--- NOTE | 2019-09-13 11:37 | NUR ---
Lead Ruby On Rails Developer met with patient and Dr. Guerrier to discuss discharge planning. Dr. Guerrier is recommending placement at a group home facility as patient will need higher level of care upon discharge. Patient would like referrals sent to [facility] and [email or web address]. Dr. Guerrier also spoke with patient about [facility] facility in [place]. Patient reports he works with the [employer]. SW contacted patient's , Ness who advised her first preference is [facility] and second preference is [facility]. Ness states she does not want to look into [facility] at this time as she would like for patient to stay locally. GINNA contacted Isela at [facility] and Jose Luis at [email or web address] then faxed referrals. SW to continue to follow.
[2019-09-13 11:58] VITALS: BP 87/40; PULSE 80; TEMP 98.1
--- NOTE | 2019-09-13 12:30 | NUR ---
Patient has been having a hard time getting comfortable since dialysis. We adjusted his sling, his pillows and repositioned him. He stated he is feeling a little better but this leg hurts. He keeps saying he wants to be on hospice but than flips to not wanting to be on hospice. He does not [facility] to go to the [facility]. No other changes at this time. Call light within reach.
--- NOTE | 2019-09-13 15:02 | NUR ---
Supervisor Electric Motor Testing spoke with Dr. Guerrier about ordering COVID testing and PT/OT for patient. SW also contacted the [facility] and left a message for the Nurse Academic Manager. GINNA followed up with patient's , Ness about Medicaid coverage. Ness advised they were likely over the resource limit at this time and would not qualify. GINNA spoke with Isela at [facility] who advised they can accept referral pending COVID testing. Isela advised they would also want pain controlled without IV medications prior to discharge. SW to continue to follow.
--- NOTE | 2019-09-13 15:55 | NUR ---
Diamond Sander spoke with Nurse Interactive Media Project Manager for [facility] and faxed clinical updates to fax#[phone]. SW was advised [facility] is only [place] approved intermediate but that could consult Social Makenzie Worker (ph#[phone]). SW to continue to follow.
[2019-09-13 15:57] VITALS: BP 97/45; PULSE 85; TEMP 97.7
--- NOTE | 2019-09-13 18:00 | NUR ---
Finally got patients pain back under control. He is resting comfortably at this time. No complaints of nausea. Explained he has dialysis again tomorrow. No other changes at this time. Call light within reach.
--- NOTE | 2019-09-13 19:34 | NUR ---
Received report from ANDREW Brewer. Pt currently lying in bed. Pt had complaints of pain and pt was given pain medication at this time. Pt stated that he just has had a rough day. Pt has his call light within reach. Dressing to his left leg leg is clean dry and intact. Pt right arm is in a sling and bruising noted to right arm. Pt left arm has edema noted in assessment. Pt stump has not bruising at this time. Heart sounds were normal S1 and S2 sounds. Pt lung sounds sounds noted in assesment. Pt is currently talking with family on the phone.
--- NOTE | 2019-09-13 20:05 | NUR ---
Pt currently lying in bed. Pt stated that she wasn't having any pain at this time. She did state that earlier she was having some shoulder pain. Pt lungs sounds were clear and heart sounds were normal S1 and S2 sounds. Pt bowel sounds were hypoactive in all quads. Pt heart rate was running 108-113. Pt IV was discontinued at this time. Pt has been tolerating fluids very well and has voided. Pt has her call ligth within reach.
--- NOTE | 2019-09-13 20:12 | NUR ---
Pt was given her discharge packet. Pt was educated on activity as tolerated and she was able to shower in 24 hours. She was also educated on her diet how now she is on low fiber diet and she was to continue this diet for 48 hours and as she tolerated she can advance to regular diet. She was educated on her lap sites and how to care for them and when to contact the doctor. Pt was discontinued from her left hand and everything was intact. ANDREW Whitmore did inform me that her has picked up her prescription and is getting it filled. Pt is going to get dressed and call us when her is downstaris. Pt has her call light within reach.
[2019-09-13 20:42] VITALS: BP 89/46; PULSE 88; TEMP 98
--- NOTE | 2019-09-13 20:45 | NUR ---
Pt was transported to the ER entrance via wheelchair by the SECRETARY BOOKKEEPER. Pt has voided, has been tolerating her diet well, she has no drainage from her 4 lap sites edges are well approximated. Pt has her education packet for discharge and her has taken her prescription to be filled. Pt is currently on the low fiber diet and she will advance as tolerated in 48 hours to a regular diet.
[2019-09-14] VITALS (7 sets, daily range): BP systolic 76–130; BP diastolic 38–64; PULSE 76–91; TEMP 93.3–98.7
--- NOTE | 2019-09-14 06:00 | NUR ---
Starting around 0430 pt had a low blood pressure reading. Pt had asked for dilaudid at this time. Pt blood measure manually was 82/50. Pt was not given medication at this time. Pt was offered Tylenol at this time but pt refused. Pt vitals were taken every 30 minutes to see if his blood pressure imporved. Pt blood pressure reading were still running between 82-85 systolic and 50-30 diastolic. Pt is currently resting in bed. Pt has his call light within reach. Pt was also informed about the low blood pressure he did state that it felt funny when it was low. Pt understood the reason why the medication was held.
--- NOTE | 2019-09-14 07:24 | NUR ---
Reported off to ANDREW Archer. Pt is currently lying in bed. Pt is sleeping but easy to arouse. Pt has his call light within reach and his bed is in lowest position .
--- NOTE | 2019-09-14 10:30 | NUR ---
Patient alert and oriented, answers questions appropriately. See assesment. RUE with arm sling in place, neuros intact to RUE, pulses palpable. RUE precautions reviewed with patient. LLE laceration with edges well approximated, cathleen intact, no redness or drainage noted. Chronic wound to LLE with scant amount of drainage noted, wound bed red. No c/o at this time.
--- NOTE | 2019-09-14 11:58 | NUR ---
First visit from the roll trucker. No needs right now.
[2019-09-14 13:20] LABS: BASO % 0.3 % (0.0-2.0); EOS # 0.1 (0.0-0.7); EOS % 1.3 % (0-4.0); GRAN # 4.6 (1.4-6.5); GRAN % 75.2 % (42.2-75.2); LYMPH # 0.8 (1.2-3.4); MEAN CELL VOLUME 110 fl (80.0-100.0); MEAN CORPUSCULAR HGB CONC 31 g/dl (33.0-37.0); MEAN PLATELET VOLUME 12.2 fl (7.4-10.4); MONO # 0.6 (0.1-0.6); MONO % 9.7 % (1.7-9.3); PLATELET COUNT 82 K/mm3 (130-400); RED BLOOD COUNT 2.62 M/mm3 (4.20-5.60); REDCELL DISTRIBUTION WIDTH-CV 14.6 % (11.5-14.5)
[2019-09-14 13:21] LABS: HEMATOCRIT 28.9 % (42.0-52.0); MEAN CORPUSCULAR HEMOGLOBIN 34 pg (27.0-31.0)
[2019-09-14 13:32] LABS: ALBUMIN 3.6 gm/dL (3.5-5.0); CALCIUM 8.4 mg/dL (8.4-10.2); CREATININE, serum 5.63 (0.66-1.25); PHOSPHOROUS 4.9 mg/dL (2.5-4.5); POTASSIUM 5.1 mmol/L (3.4-5.0)
--- NOTE | 2019-09-14 15:35 | NUR ---
Ice Cream Freezer Helper spoke with GINNA Banegas at the [place] (ph#[phone]) who advised that patient is 100% service connected and eligible for [place] contract. Makenzie advised that they can contract with either [facility] and [facility]. Makenzie advised that patient can discharge with skilled orders and then transition to rat exterminator care under [place] contract. GINNA contacted Isela at [facility] to review plan. Isela advised that they would want skilled orders upon discharge and that they would like to have PT/OT work with patient while in the hospital. GINNA provided these updates to Dr. Guerrier who instructed SW to contact Narcisa to order PT/OT. GINNA faxed updates to Isela at [facility]. GINNA also contacted patient's , Ness to provide update. Ness states she and Isela at [facility] are concerned about patient's pain management. GINNA spoke with Dr. Guerrier and advised that per [facility], patient's pain would need to be controlled without IV medications. GINNA to continue to follow.
--- NOTE | 2019-09-14 19:00 | NUR ---
Received report from ANDREW Archer. Pt currently lying in bed and has his call light within reach.
[2019-09-15] VITALS (7 sets, daily range): BP systolic 76–112; BP diastolic 38–58; PULSE 78–93; TEMP 97.3–98.6
--- NOTE | 2019-09-15 06:00 | NUR ---
Pt has called out twice during the night. He wanted to try to use the bed moreno. Pt was not succesful with both tries. Pt was also cleaned and a dressing was applied to his bottom at this time and barrier cream. Pt was repositioned often in bed to make sure that he was comfortable. Pt did state that he did not want any pain medication. Pt vitals were checked by the aide and she was getting very low reading. Blood pressures were check by me when I assessed the pt and the reading were done mannually and the reading were better. Pt is currently lying in bed with his call light within reach.
--- NOTE | 2019-09-15 07:37 | NUR ---
Reported off to ANDREW Archer. Pt is currently sitting up in bed.
--- NOTE | 2019-09-15 09:00 | NUR ---
Patient alert and oriented, answers questions appropriately. See assessment. RUE wit sling in place, bruising noted to shoulder. Pulses intact to RUE, no numbness or tingling noted. LLE laceration with edges well approximated, no redness or drainage noted. Pulses palpable to LLE. Chronic wound to LLE with dressing CDI. No c/o at this time.
--- NOTE | 2019-09-15 10:44 | NUR ---
Dr Guerrier here to see patient.
--- NOTE | 2019-09-15 11:15 | NUR ---
Assume care of patient. Patient is up on commode with use of eli lift at this time. Patient is complete and would like to get back to bed. Patient says that he was able to pass gas but does not think he had a bowel movement. Patient assisted back to bed with use of eli lift, tolerates poorly as it is difficult to get sling to stay under right AKA. No bowel movement, when wiped patient has some bowel movement on the wipes. Mepilex to sacral area no longer attached. Removed. Stage 1 pressure ulcer noted to left and right upper, inner areas near buttocks. New mepilex applied. Dressings removed from left lower extremity. Patient says that he sees wound care and the wounds on left outer aspect of ankle and mid inner calf have a blue piece that is to stay on the wound. Blue piece left in place at both wounds and new bandage covering applied to sites. New bandaid applied to wound on inner left ankle where there is a small skin tear that is draining. Patient sustained a laceration when he fell to the outer aspect of left calf. Sutures remain intact. Draining dark reddish/black discharge from site. Area is bruised and dark purple in color. Applied Xeroform and telfa to top of laceration. Applied ten 4x4s to site to wrap to bottom of calf. ABD placed on top. Site wrapped with chilo and coban. Patient tolerates dressing changes without difficulty. Positioned to comfortable position in bed. Denies further needs at this time.
--- NOTE | 2019-09-15 13:44 | NUR ---
Supervisor Maple Products faxed updates to [facility] and [facility]. GINNA advised Jose Luis at [facility] that patient's first preference can likely accept. SW to continue to follow.
--- NOTE | 2019-09-15 14:03 | NUR ---
Lying in bed with eyes closed. Respirations even and unlabored. No signs or symptoms of discomfort noted at this time.
--- NOTE | 2019-09-15 15:54 | NUR ---
Patient upset because he feels that he is constipated and he has not had a bowel movement. DARLNEE Del Rosario, in room and explains to the patient that he had a large bowel movement just a little bit ago. Patient says that he does not know if that is accurate or not and feels that he is constipated and needs to have more of a bowel movement. Patient says that he takes a "brown top medicine" four times a day at home, but is unsure what the name of it is. Offered patient prune juice and he refuses at this time. Patient having pain 8/10 in right shoulder and hip. Offered pain medication and the patient refuses. Patient says that they have got to get his pain under control. Explain that if he is having pain and needs pain medication he needs to let us know. Patient says that he does not want to take pain medication at this time.
--- NOTE | 2019-09-15 16:03 | NUR ---
Message left for Dr. Guerrier to contact this nurse. Patient would like it clarified with Dr. Guerrier what medication for constipation was to be added to regimen today.
--- NOTE | 2019-09-15 16:05 | NUR ---
Receive call from telemetry that the patient's heart rate increased to 170's for short period of time. Patient in room sleeping. Woke patient and he says that he feels okay other than the constipation. Listened and palpated heart rate and it was runnign in 80's. Explained to the patient that I am waiting on Dr. Guerrier to call back regarding his medication for constipation. Patient verbalizes understanding and denies further needs.
--- NOTE | 2019-09-15 16:23 | NUR ---
Dr. Guerrier returns call. Orders received for sorbitol for constipation. Updated Dr. Guerrier regarding the heart rate increase. Orders received for EKG and to leave on chart and he will review.
--- NOTE | 2019-09-15 17:01 | NUR ---
Patient lying in bed with eyes closed. Explained that we got sorbitol ordered for him to take. Patient takes at this time. Expresses that this medication works at home and is sure it will work here. Denies further needs at this time.
--- NOTE | 2019-09-15 19:02 | NUR ---
Received report from ANDREW Whitmore. Pt is currently lying in bed sleeping. Pt has his call light within reach.
--- NOTE | 2019-09-15 22:00 | NUR ---
Pt has slept well since the beginning of the shift. Pt did wake up to take his evening medications. Pt wore his CPAP only for a short time. Pt now has nasal cannula at 3 liters. Pt has his call light within reach.
[2019-09-16] VITALS (7 sets, daily range): BP systolic 84–125; BP diastolic 26–90; PULSE 80–95; TEMP 97.6–98.9
--- NOTE | 2019-09-16 05:15 | NUR ---
Pt is lyin awake in bed. Pt dressing was changed at this time. There was minimal drainage on the dressing. New dressing change has non adhesive dress and 4x4's and soft sponge dressing and coban. Pt tolerated this well. Pt has his call light within reach.
--- NOTE | 2019-09-16 08:58 | NUR ---
PT UP IN [place] TO DIALYSIS CHAIR PER ORDERS. PT TOLERATED WITH MULTIPLE COMPLAINTS. AM MEDS GIVEN ORDERED. PT STATES HE WANTS HOSPICE IF THEY ARE PLANING ON DISCHARGE TO A SKILLED FACILITY.
[2019-09-16 09:06] LABS: BASO % 0.2 % (0.0-2.0); EOS # 0.2 (0.0-0.7); EOS % 4.1 % (0-4.0); GRAN # 3.7 (1.4-6.5); LYMPH # 1.2 (1.2-3.4); LYMPH % 20.9 % (20.0-51.0); MEAN CELL VOLUME 108 fl (80.0-100.0); MEAN CORPUSCULAR HGB CONC 32 g/dl (33.0-37.0); MEAN PLATELET VOLUME 12.1 fl (7.4-10.4); MONO # 0.7 (0.1-0.6); MONO % 11.3 % (1.7-9.3); PLATELET COUNT 93 K/mm3 (130-400); REDCELL DISTRIBUTION WIDTH-CV 14.6 % (11.5-14.5)
[2019-09-16 09:11] LABS: HEMATOCRIT 29.1 % (42.0-52.0); HEMOGLOBIN 9.2 g/dl (13.5-18.0); MEAN CORPUSCULAR HEMOGLOBIN 34 pg (27.0-31.0)
[2019-09-16 09:20] LABS: ALBUMIN 3.8 gm/dL (3.5-5.0); CALCIUM 8.8 mg/dL (8.4-10.2); CREATININE, serum 5.52 (0.66-1.25); PHOSPHOROUS 4.4 mg/dL (2.5-4.5); POTASSIUM 3.9 mmol/L (3.4-5.0)
--- NOTE | 2019-09-16 10:33 | NUR ---
Unix Consultant faxed updates to [facility] and [facility]. GINNA spoke with Dr. Guerrier and patient to review discharge plan. Dr. Guerrier advised plan is for patient to discharge Thursday after dialysis. GINNA was contacted by Venu at [facility] and GINNA advised tentative DC date is Thursday. GINNA contacted patient's , Ness to provide update. SW to continue to follow.
--- NOTE | 2019-09-16 19:17 | NUR ---
REPORT TO TRIPP MORALES.
[2019-09-17] VITALS (8 sets, daily range): BP systolic 71–102; BP diastolic 31–58; PULSE 80–99; TEMP 97.6–98
--- NOTE | 2019-09-17 05:00 | NUR ---
Rested off and on this shift. Denied pain/nausea/shortness of breath. Sling remained on all this shift. CPAP@HS. VS remained stable-blood pressures better. No PRN pain meds requested. Denies needs. Call light in reach. Will monitor.
--- NOTE | 2019-09-17 08:00 | NUR ---
Alert. Right arm in sling/ swathe. States shoulder hurts more and feels stiff. Denies need for IV pain medication.
--- NOTE | 2019-09-17 11:00 | NUR ---
Stood with physical therapist at bedside. Patient cooperative and agreeable to increase activity as tolerated.
--- NOTE | 2019-09-17 18:00 | NUR ---
Drowsy. Repositions self in bed. No c/o pain.
--- NOTE | 2019-09-17 20:08 | NUR ---
Report received. Assumed care for hydraulic jack adjuster. Assesssment complete. VS stable. A&Ox3-drowsy. Denies pain/shortness of breath/nausea. States he just feels tired. Dressing to left lower extremity-gauze/valentin-CDI. Right arm in sling. Denies current needs. Call light in reach. Will monitor.
--- NOTE | 2019-09-18 02:30 | NUR ---
Arm sling adjusted. States he had an itch and tried to take it off to get to the area and now he is hurting. Assisted with replacing-extra pillow given for support. Denies needs. Call light in reach. Will monitor.
[2019-09-18 04:32] VITALS: BP 99/41; PULSE 81; TEMP 97.6
--- NOTE | 2019-09-18 06:00 | NUR ---
Rested well this shift. Denied needing anything extra for pain medication. States he is happy he is receiving his normal scheduled medications. Denies nausea/shortness of breath. Call light in reach. Will monitor.
[2019-09-18 07:18] VITALS: BP 92/46; PULSE 83; TEMP 97.3
--- NOTE | 2019-09-18 10:00 | NUR ---
Patient assisted with full bed bath from RUG CUTTER HELPER. New dressings applied from E. Patient reports some of the wound are chronic & some are new from fall. Am medications given. Cms intact, sling on. Brusing noted.
[2019-09-18 10:48] VITALS: BP 134/66; PULSE 59; TEMP 97.7
[2019-09-18 10:50] VITALS: BP 81/51; PULSE 89; TEMP 97.4
[2019-09-18 16:09] VITALS: BP 89/53; PULSE 87; TEMP 98
--- NOTE | 2019-09-18 17:14 | NUR ---
Patient resting in bed. Eating dinner. He did not have lunch, but ready for dinner. Denies the need for tylenol at this time. Sling on. Cms intact. His daughter in law visited this afternoon. Milady Banks rounded this afternoon. Patient main concern is his bowels & his chrons. Tried to reassure him that we can help him get to the commode. Jayro husain.
[2019-09-18 19:53] VITALS: BP 90/50; PULSE 92; TEMP 97.2
--- NOTE | 2019-09-18 20:00 | NUR ---
Report received. Assumed care for shift superintendent. Assessment complete. A&Ox3. VS stable. Denies nausea/shortness of breath/pain. Sling intact to right shoulder. Dressing to left lower extremity-valentin/gauze-CDI. Elevated on pillow. States he may need to get up later to have a BM-encouraged to call when needed. Denies current needs. Call light in reach. Will monitor.
[2019-09-19 01:32] VITALS: BP 93/50; PULSE 89; TEMP 98
--- NOTE | 2019-09-19 03:10 | NUR ---
Rested well later this shift. Denied need for pain medication. VS remained stable-still hypotensive. Tolerating PO. Did have a large loose stool this shift on commode with transfer x3 assist. Denies needs. Call light in reach. Will monitor.
[2019-09-19 03:29] VITALS: BP 95/50; PULSE 83; TEMP 98.4
[2019-09-19 07:32] VITALS: BP 94/50; PULSE 81; TEMP 97.6
--- NOTE | 2019-09-19 08:05 | NUR ---
Patient in bed, refuses breakfast at this time, states it makes him sick if he eats prior to dialysis. Refused lactulose d/t concerns of being able to get on a commode, reassured patient that if he needs to use comode staff would be able to assist; continues to refuse at this time. Sling to NATALIA, CMS to arm intact. Eccymosis to NATALIA noted with foam dressing at elbow, CDI. HD cath to right flank noted. Dressing to LLE is CDI, eccymosis also noted to leg. Denies further needs at this time.
--- NOTE | 2019-09-19 09:14 | NUR ---
Patient to dialysis via chair.
[2019-09-19 09:55] LABS: BASO % 0.3 % (0.0-2.0); EOS # 0.2 (0.0-0.7); EOS % 3.6 % (0-4.0); GRAN # 3.3 (1.4-6.5); LYMPH # 1.3 (1.2-3.4); LYMPH % 22.4 % (20.0-51.0); MEAN CELL VOLUME 108 fl (80.0-100.0); MEAN CORPUSCULAR HGB CONC 31 g/dl (33.0-37.0); MONO % 16.8 % (1.7-9.3); PLATELET COUNT 145 K/mm3 (130-400); RED BLOOD COUNT 2.62 M/mm3 (4.20-5.60); REDCELL DISTRIBUTION WIDTH-CV 14.6 % (11.5-14.5)
[2019-09-19 10:05] LABS: ALBUMIN 3.8 gm/dL (3.5-5.0); CREATININE, serum 7.81 (0.66-1.25); PHOSPHOROUS 4.8 mg/dL (2.5-4.5)
[2019-09-19 10:06] LABS: CALCIUM 8.7 mg/dL (8.4-10.2); POTASSIUM 4.5 mmol/L (3.4-5.0)
[2019-09-19 10:10] LABS: HEMATOCRIT 28.4 % (42.0-52.0); HEMOGLOBIN 8.9 g/dl (13.5-18.0); MEAN CORPUSCULAR HEMOGLOBIN 34 pg (27.0-31.0)
[2019-09-19 12:00] VITALS: BP 99/58; PULSE 89; TEMP 97.4
--- NOTE | 2019-09-19 13:00 | NUR ---
Patient back to room from dialysis, transfer to bed via eli lift.
--- NOTE | 2019-09-19 15:28 | NUR ---
Quality And Reliability Engineer faxed updates to Isela at [facility]. GINNA spoke with ANDREW Brewster about nursing note indicating hospice. Narcisa advised that patient wants to continue with dialysis and plan is still for [facility]. GINNA provided this update to Isela. SW to continue to follow.
[2019-09-19 15:45] VITALS: BP 86/44; PULSE 88; TEMP 98.1
--- NOTE | 2019-09-19 18:25 | NUR ---
Patient has done well throughout the day. Minimal needs. Denies pain at this time. Sling maintained to NATALIA. Eating small amounts of meals throughout the day, offered snacks. Denies further needs at this time. Will report off to service secretary
[2019-09-19 19:54] VITALS: BP 73/41; PULSE 80; TEMP 98
--- NOTE | 2019-09-19 20:00 | NUR ---
Received report from ANDREW Bueno. Pt is currently sleeping in bed. Pt has his call light within reach.
[2019-09-20 00:44] VITALS: BP 87/52; PULSE 92; TEMP 98.6
[2019-09-20 03:19] VITALS: BP 95/58; PULSE 76; TEMP 98.8
--- NOTE | 2019-09-20 06:34 | NUR ---
Pt has slept well during the night. Pt has not requested anything for pain. Pt has his call light within reach and his bed is in lowest position.
--- NOTE | 2019-09-20 07:33 | NUR ---
Reported off to ANDREW Bueno. Pt is currently awake in bed wathing televison. Pt has his call light within reach.
--- NOTE | 2019-09-20 08:00 | NUR ---
Patient in bed resting. Alert and oriented x 3. Assessment complete. Denies pain at this time. Mepliex with moderate amount of bloody drainage noted to right elbow. Dressing to left perez is CDI. Mepilex to left heel is CDI. INT to CANDELARIA. HD cath to right flank. RUE in sling. Denies further needs at this time.
[2019-09-20 08:34] LABS: ALBUMIN 3.7 gm/dL (3.5-5.0); CALCIUM 8.7 mg/dL (8.4-10.2); CREATININE, serum 5.05 (0.66-1.25); PHOSPHOROUS 4.2 mg/dL (2.5-4.5); POTASSIUM 4.1 mmol/L (3.4-5.0)
[2019-09-20 08:49] VITALS: BP 91/51; PULSE 85; TEMP 97.5
[2019-09-20 10:39] LABS: BASO % 0.4 % (0.0-2.0); EOS # 0.1 (0.0-0.7); EOS % 2.6 % (0-4.0); GRAN # 2.4 (1.4-6.5); GRAN % 48.2 % (42.2-75.2); LYMPH # 1.5 (1.2-3.4); LYMPH % 29.7 % (20.0-51.0); MEAN CELL VOLUME 107 fl (80.0-100.0); MEAN CORPUSCULAR HGB CONC 32 g/dl (33.0-37.0); MONO # 0.9 (0.1-0.6); MONO % 17.9 % (1.7-9.3); PLATELET COUNT 145 K/mm3 (130-400); RED BLOOD COUNT 2.61 M/mm3 (4.20-5.60); REDCELL DISTRIBUTION WIDTH-CV 14.6 % (11.5-14.5)
[2019-09-20 10:41] LABS: HEMOGLOBIN 8.9 g/dl (13.5-18.0); MEAN CORPUSCULAR HEMOGLOBIN 34 pg (27.0-31.0)
[2019-09-20 11:53] VITALS: BP 90/55; PULSE 84; TEMP 97.4
--- NOTE | 2019-09-20 12:01 | NUR ---
Patient in bed, assisted patient to reposition. No further needs at this time.
--- NOTE | 2019-09-20 14:20 | NUR ---
Business Process Representative faxed updates to Isela at [facility]. GINNA spoke with RN, Ximena who advised patient may discharge tomorrow after dialysis. GINNA provided this update to Isela. GINNA contacted patient's , Ness to provide update. Ness had a question about quarantine upon discharge which SW passed along to Isela. GINNA contacted [place] Business Process Representative and left a message. GINNA to continue to follow.
[2019-09-20 16:15] VITALS: BP 86/56; PULSE 94; TEMP 97.9
--- NOTE | 2019-09-20 18:36 | NUR ---
Patient has done well throughout the day. Had a large BM today. Pericare provided. Denies pain throughout the day. RUE in sling throughout the day. Denies further needs at this time. Will report off to franchise consultant.
--- NOTE | 2019-09-20 19:40 | NUR ---
Report received. 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 Assessment complete. A&Ox3. VS stable. Denies pain/shortness of breath/nausea. Sling to right upper extremity. Right elbow abrasion with mepilex. Left lower extremity dressing CDI-gauze. Denies needs. Plan of care discussed-requesting Restoril/klonopin admin later tonight. Instructed to call when ready for it. Verbalizes understanding. Denies needs. Call light in reach. Will monitor.
[2019-09-20 20:00] VITALS: BP 104/56; PULSE 82; TEMP 97.7
--- NOTE | 2019-09-20 23:15 | NUR ---
Called requesting HS meds. Given at this time. CPAP on. Denies any other needs. Call light in reach. Will monitor.
[2019-09-21 00:12] VITALS: BP 91/53; PULSE 83; TEMP 97.4
[2019-09-21 04:00] VITALS: BP 92/57; PULSE 84; TEMP 97.4
--- NOTE | 2019-09-21 04:51 | NUR ---
Has rested well this shift. Denied pain/shortness of breath/nausea. Plan for dialysis today. No s/s of distress noted. Call light in reach. Will monitor.
[2019-09-21 07:30] VITALS: BP 83/49; BP 89/49; PULSE 74; PULSE 84; TEMP 97.3
[2019-09-21 10:03] LABS: BASO % 0.6 % (0.0-2.0); EOS # 0.1 (0.0-0.7); GRAN # 3.7 (1.4-6.5); GRAN % 57.5 % (42.2-75.2); HEMATOCRIT 28.7 % (42.0-52.0); LYMPH # 1.7 (1.2-3.4); LYMPH % 26.8 % (20.0-51.0); MEAN CELL VOLUME 108 fl (80.0-100.0); MEAN CORPUSCULAR HEMOGLOBIN 34 pg (27.0-31.0); MEAN CORPUSCULAR HGB CONC 31 g/dl (33.0-37.0); MEAN PLATELET VOLUME 11.4 fl (7.4-10.4); MONO # 0.8 (0.1-0.6); MONO % 12.2 % (1.7-9.3); PLATELET COUNT 185 K/mm3 (130-400); RED BLOOD COUNT 2.67 M/mm3 (4.20-5.60); REDCELL DISTRIBUTION WIDTH-CV 14.7 % (11.5-14.5)
[2019-09-21 10:12] LABS: ALBUMIN 3.8 gm/dL (3.5-5.0); CALCIUM 8.9 mg/dL (8.4-10.2); CREATININE, serum 6.94 (0.66-1.25); PHOSPHOROUS 5.4 mg/dL (2.5-4.5); POTASSIUM 4.7 mmol/L (3.4-5.0)
--- NOTE | 2019-09-21 10:29 | NUR ---
Patient in dialysis with Luma, who will be caring for patient. Patient was 3 assist with eli lift to dialysis chair. He tolerated fairly well, pain was increased with movement to his right hip. Patient tolerated breakfast & took am medication without problem. See assessment.
[2019-09-21] MEDS ORDERED: CELEBREX 1100 MG/CAP PO (12:58)
[2019-09-21 14:33] VITALS: BP 89/49; PULSE 84; TEMP 97.3
--- NOTE | 2019-09-21 14:40 | NUR ---
Funder coordinated with Isela at [facility] as patient is ready for discharge today. GINNA faxed updates then set transport time for 1500. GINNA provided transport time to RNRere. GINNA contacted patient's to provide update. GINNA met with patient who still is in agreement with discharge to [facility]. GINNA read IM form aloud to patient who verbalized understanding then provided verbal consent as signature. GINNA placed form in chart and provided copy to patient. GINNA faxed discharge orders to Isela at [facility]. No additional needs at this time.
--- NOTE | 2019-09-21 15:35 | NUR ---
Patient to [facility] via wheelchair. Patient transferred using eli lift. Report called to [facility] & all questions amswered. Patient given bedbath prior to discharge & dressings changed. saw patient during dialysis & re sutured his hepatic cath. Plans for admission to hospital next for radiology appt. Patient also set up with wound care next thursday to see his new & chronic wound & remove sutures.
== END 2019-09-21 16:45 | DRG 562 ==
LOC: COL.ER 09:53 → SURG 13:02
PROVIDERS: Emergency Medicine; Nurse Practitioner; Physician Assistant; ADMIT Internal Medicine Nephrology
PROC: 5A1D70Z Performance of Urinary Filtration, Intermittent, Less than 6 Hours Per Day (ICD-10-PCS; principal; 2019-09-13)
DX: S42.201A Unspecified fracture of upper end of right humerus, initial encounter for closed fracture (principal); N18.6 End stage renal disease; K50.90 Crohn's disease, unspecified, without complications; Z99.2 Dependence on renal dialysis; D63.1 Anemia in chronic kidney disease; K59.00 Constipation, unspecified; M16.11 Unilateral primary osteoarthritis, right hip; W05.0XXA Fall from non-moving wheelchair, initial encounter; Y93.89 Activity, other specified; Y92.89 Other specified places as the place of occurrence of the external cause; Y99.8 Other external cause status; I25.2 Old myocardial infarction; G47.30 Sleep apnea, unspecified; J44.9 Chronic obstructive pulmonary disease, unspecified; K21.9 Gastro-esophageal reflux disease without esophagitis; Z90.2 Acquired absence of lung [part of]; Z89.611 Acquired absence of right leg above knee; Z79.82 Long term (current) use of aspirin; Z88.0 Allergy status to penicillin; Z88.8 Allergy status to other drugs, medicaments and biological substances; S81.812A Laceration without foreign body, left lower leg, initial encounter; G89.29 Other chronic pain
CPT/HCPCS: J1170; J1644; J3010; J7030; Q4050; Q5105

== ENCOUNTER 2019-09-27 06:28 | Outpatient (CLI) | payer MEDICARE, OTHER ==
[~2019-09-27 06:28] MED LIST changes: +CELEBREX 1100 MG/CAP PO; +VITAMIN B11000 MCG/M IM
[2019-09-27] MEDS ORDERED: PEPCID40 MG PO (07:05)
[2019-09-27] MEDS ORDERED: MYLANTA 150 ML150 M1 PO (07:06)
[2019-09-27] MEDS ORDERED: GOOD SENSE400 MG/5 M PO (07:06)
[2019-09-27] MEDS ORDERED: IMODIUM 2MG CAPS2 MG PO (07:07)
[2019-09-27] MEDS ORDERED: KLONOPIN 1MG1 MG PO (07:07)
[2019-09-27] MEDS ORDERED: DULCOLAX S10 MG/SUPP RC (07:08)
[2019-09-27] MEDS ORDERED: DEBROX OT (07:08)
[2019-09-27] MEDS ORDERED: CELEBREX 1100 MG/CAP PO (07:11)
[2019-09-27 07:57] VITALS: BP 89/39; PULSE 86; TEMP 97.9
[2019-09-27 09:45] VITALS: BP 109/91; PULSE 88
--- NOTE | 2019-09-27 09:59 | NUR ---
Procedure cancelled. Dahlia Notified to vegetable picker pt at 1030
--- NOTE | 2019-09-27 10:45 | NUR ---
Transferred to [facility] by personal wc. Report given to Dolores MORALES
== END 2019-09-27 10:45 | disposition home or self-care (01) ==
LOC: COL.CAR 06:28
DX: N18.6 End stage renal disease (principal); Z99.2 Dependence on renal dialysis; Z89.511 Acquired absence of right leg below knee; Z88.0 Allergy status to penicillin; Z88.8 Allergy status to other drugs, medicaments and biological substances; Z79.82 Long term (current) use of aspirin; Z53.8 Procedure and treatment not carried out for other reasons
CPT/HCPCS: J1200; J1644